=== PATIENT | male | born 1950 | race Caucasian/White ===

== ENCOUNTER 2021-08-06 13:35 | Outpatient (REF) | payer MEDICARE, BC, SELFPAY | END 2021-08-06 13:36 | disposition home or self-care (01) | LOC: HO.LAB 13:35 | PROVIDERS: Visit Provider Internal Medicine | DX: Z20.822 Contact with and (suspected) exposure to COVID-19 (principal) | CPT/HCPCS: C9803; U0003; U0005 ==

== ENCOUNTER 2024-12-25 11:16 | Outpatient (AMB) | payer MEDICARE, BC, SELFPAY ==
--- NOTE | 2024-12-25 11:18 | MHC.OFFVIS ---
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 His pain has been ongoing since 2012, attributable to lumbar facet arthritis and fibromyalgia. He underwent bilateral facet joint injections at L4-L5 and L5-S1 last year by Dr. Mcpherson, with only temporary alleviation of symptoms. Severe arthritis at these lumbar levels was confirmed by an MRI performed last year. His pain scale ranges between 4-8/10, exacerbated in the morning, and impacting daily function. Although he engaged in physical therapy and sought alternative therapies such as PRP injections at [facility], these have not significantly alleviated his discomfort. He expresses hesitancy towards RFA due to concerns with potential discomfort with nerve blocks and ablation procedure under local anesthesia. Patient reports his back pain symptoms have been worsening and he experiences significant difficulty with walking and fibromyalgia flare ups. He has completed physical therapy in the past with mild improvement and has also tried intermittently multiple sessions of chiropractic manipulation, massage therapy and acupuncture for the past 13 years with mixed results. Patient also undergone psychological counseling for chronic pain and depression until [address] Mcpherson since 2023 for back injections. He also has been taking Tylenol #3 as needed with minimal relief and uses marijuana on occasional basis for pain and sleep. 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 Patient avoids NSAIDs due to unknown allergy. - Onset: Pain began in 2012 - Quality/Character: Chronic, persists between 4-8/10 on pain scale; stabbing, sharp, pinching, burning, stinging, sore, hurting, aching, tiring, fearful, tight, squeezing - Location: Low back and buttocks - Radiation: Occasionally to left leg - Exacerbating factors: Arising in the morning, prolonged standing - Relieving factors: Better early evening, limited response to prior injections - Functional impact: Affects daily activities, impedes standing for prolonged periods - Affect: Pain impacting patient's daily functioning and potentially mood - Analgesia: Temporary relief previously from facet injections, current pain scale 8/10 - Adverse Effects: No side effects reported from previous treatments - Activities of Daily Living: Pain interferes with daily activities; goal to increase function and possibly engage in hiking - Aberrant Drug Related Behaviors: Reports history of remote addiction to Ativan and Klonopin [facility] Social History Alcohol intake: current Alcohol intake frequency: holidays/special occasions only Substance Use Type: Marijuana Substance Use Frequency: Occasionally Review of Systems Const Details: - Musculoskeletal: Reports chronic low back and buttock pain, occasional radiation to the left leg - Gastrointestinal: Denies recent surgery-related issues, experienced a week of diarrhea - Neurological: Denies bladder or bowel incontinence, saddle anesthesia or weakness All systems reviewed & are unremarkable except as noted in HPI and below Physical Exam Vital Signs: Last Vital Signs Pulse 72 12/25/24 11:21 BP 120/65 12/25/24 11:21 Pulse Ox 97 12/25/24 11:21 Oxygen Delivery Method Room Air 12/25/24 11:21 BMI result Body Mass Index 25.8 General: Appears afebrile. Alert and oriented. Mood and affect appropriate. Follows and participates in conversation appropriately. Respiratory effort is unlabored. No cough. Able to transition from sit to stand unassisted. Ambulates with bilaterally normal heel strike and toe off. Back/Spine/Pelvis Other: Limited lumbar ROM due to pain. Slightly antalgic gait, no limping. Demonstrates 5/5 strength of quadriceps bilaterally as well as flexion/dorsiflexion of bilateral feet against resistance. 2+ pedal pulses bilaterally. Straight leg rise with dorsiflexion negative bilaterally. +1 patellar and achilles reflexes bilaterally. Facet loading test positive bilaterally. Anaid sign, Fili?s, Gaenslen, Pelvic compression and Stinchfield tests are positive bilaterally. No groin pain with I/E hip rotations. Valsalva maneuver negative. Multiple widespread TTPs 16/16 bilaterally, including upper and lower extremities. Results Reviewed Results Reviewed: No imaging reports are available for review. Per referral notes, MRI confirmed severe arthritis at L4-L5 and L5-S1 (from prior testing) Assessment & Plan Assessment & Plan (1) Lumbar spondylosis: Code(s): M47.816 - Spondylosis without myelopathy or radiculopathy, lumbar region Category: Medical (2) Chronic low back pain: Code(s): M54.50 - Low back pain, unspecified; G89.29 - Other chronic pain Category: Medical (3) Fibromyalgia: Code(s): M79.7 - Fibromyalgia Category: Medical (4) Sacroiliac joint pain: Code(s): M53.3 - Sacrococcygeal disorders, not elsewhere classified Category: Medical Plan To manage the patient's chronic low back and buttock pain due to significant lumbar facet arthritis, I plan to proceed with lumbar medial branch blocks afor potential RFA, should he respond positively. This provides a temporary diagnostic blockade with potential progression to RFA, which can alleviate pain for an extended period. The discussion included potential sedation strategies for patient comfort due to fibromyalgia and discomfort concerns. An understanding of the procedural protocols, including recovery expectations and insurance submission, was emphasized. I educated the patient on the possibility of alternative methods such as nerve stimulators, which were declined. Information was provided to patient on RFA and medial branch blocks procedures. Schedule Bilateral Diagnostic L3-L4 DR L5 MBB with local and fluoroscopy. Expectations, risks and benefits were reviewed. Patient is aware he will be contacted to schedule this procedure. All questions and concerns have been answered and patient agreed with the plan. Follow up after injections and sooner as needed. Patient was informed and verbally consented to the use of an ambient scribe for clinic note documentation during this visit. Patient Instructions: During the visit, I detailed the potential application of lumbar medial branch blocks as a precursor to RFA, including the associated risks and benefits. I ensured the patient understood both the diagnostic purpose and potential for long-term pain relief achieved through RFA, possibly lasting up to a year. Sedation options to optimize comfort during RFA were discussed, especially pertinent due to fibromyalgia considerations. The patient expressed a clear understanding and consent, while expressing concerns for any potential procedural pain, which if pursued, would be mitigated through light sedation protocols. Alternative non-invasive options, including a temporary peripheral nerve stimulator, were addressed, though not preferred due to his spouse's hypersensitivity with stimulation devices. Coding Level of Care Code New Pt Level 4 (40734) Diagnoses Lumbar spondylosis M47.816 Chronic low back pain M54.50; G89.29 Fibromyalgia M79.7 Sacroiliac joint pain M53.3
[2024-12-25 11:21] VITALS: BP 120/65; PULSE 72; O2SAT 97; BMI 25.8
== END 2024-12-25 11:42 | disposition home or self-care (01) ==
PROVIDERS: Referring Provider Physical Medicine & Rehabilitation; Visit Provider Nurse Practitioner Family
DX: M47.816 Spondylosis without myelopathy or radiculopathy, lumbar region (principal); M54.50 Low back pain, unspecified; G89.29 Other chronic pain; M79.7 Fibromyalgia; M53.3 Sacrococcygeal disorders, not elsewhere classified
CPT/HCPCS: 99204

== ENCOUNTER → 2024-12-25 11:16 | Outpatient (BNVA) | payer MEDICARE, BC, SELFPAY | PROVIDERS: PCP Physical Medicine & Rehabilitation; Referring Provider Physical Medicine & Rehabilitation; Visit Provider Nurse Practitioner Family | DX: M47.816 Spondylosis without myelopathy or radiculopathy, lumbar region (principal); G89.29 Other chronic pain; M79.7 Fibromyalgia; M53.3 Sacrococcygeal disorders, not elsewhere classified | CPT/HCPCS: 99202 ==

== ENCOUNTER 2025-02-20 06:15 | Outpatient (REF) | payer MEDICARE, BC, SELFPAY ==
--- NOTE | ~2025-02-20 | FL_ITS ---
EXAMINATION: FL GUIDANCE ONLY HISTORY: M47.816 - Spondylosis without myelopathy or radiculopathy, lumbar region COMPARISON: None available. TECHNIQUE: Fluoroscopy time: 0.5 minutes. Cumulative Dose: 6.12 mGy. DAP: 0.106 mGym2 Images: 12. FINDINGS: Multiple fluoroscopic spot films of the lumbar spine in the AP projection demonstrate needles and contrast material in the regions of the bilateral L3-4, L4-5, and L5-S1 facet joints. FL/FL guidance in treatment room IMPRESSION: Fluoroscopy during procedure. Please see procedure report for additional information. Electronically signed by: Pradip Valenzuela MD 02/20/2025 12:00 PM EDT
== END 2025-02-20 06:16 | disposition home or self-care (01) ==
LOC: CF 06:15
PROVIDERS: Visit Provider Anesthesiology
DX: M47.816 Spondylosis without myelopathy or radiculopathy, lumbar region (principal)
CPT/HCPCS: 64493; 64494; J2003; J2795; Q9967

== ENCOUNTER 2025-02-20 11:16 | Outpatient (AMB) | payer MEDICARE, BC, SELFPAY ==
--- NOTE | 2025-02-20 11:17 | A.OFFVIS_ITS ---
Vital Signs 02/20/25 11:21 Height 5 ft 8.5 in Weight 172 lb BMI 25.8 BP 108/62 Blood Pressure Location Lt brachial Position Sitting Respiration 16 Pulse 78 Pulse Source Pulse Oximeter Pulse Oximetry (%) 97 Oxygen Delivery Method Room Air Intake Visit Reasons: BILATERAL DIAGNOSTIC L3, L4, DRL5 MBB/ATIVAN Allergies NSAIDS (Non-Steroidal Anti-Inflamma Allergy (Unknown, Verified 12/25/24 11:25) Unknown fragrance Allergy (Unknown, Uncoded 12/25/24 11:25) Unknown [facility], [facility] Social History Alcohol intake: current Alcohol intake frequency: holidays/special occasions only Substance Use Type: Marijuana Physical Exam Vital Signs: Last Vital Signs Pulse 78 02/20/25 11:21 Resp 16 02/20/25 11:21 BP 108/62 02/20/25 11:21 Pulse Ox 97 02/20/25 11:21 Oxygen Delivery Method Room Air 02/20/25 11:21 BMI result Body Mass Index 25.8 Assessment & Plan Assessment & Plan (1) Lumbar spondylosis: Code(s): M47.816 - Spondylosis without myelopathy or radiculopathy, lumbar region Category: Medical (2) Spondylosis of lumbar region without myelopathy or radiculopathy: Code(s): M47.816 - Spondylosis without myelopathy or radiculopathy, lumbar region Category: Medical Plan Diagnostic medial branch block L3,L4 dorsal ramus L5 bilateral.? ? ?Informed consent was explained to the patient. All questions were explained and? answered.? The patient was taken inside the operating room where she was positioned prone on the operating table. Time-out was performed delineating correct site, side, the nature of the procedure, patient's allergy, . All operating room staff was participating in OR time-out procedure. ? ? The lower back was prepped with ChloraPrep and draped with sterile towels.? C- arm was brought over the operating field and sq picture of L4-, L5 vertebra and S1 AREA were delineated on the screen.? Point of interest were delineated as confluence of superior articular process of L4 and L5 vertebra bilaterally with corresponding transverse processes as well as confluence of the sacral alae bilaterally with superior articular process of S1.? The projection of the point of interest to the skin were injected with the small amount of local anesthetic lidocaine 2% mixed with ropivacaine 0.5% 1-1 approcimately 1 cc.? After that 22 gauge 5 inch spinal needle was driven sequentially to the points of interest in tunnel vision fashion. After needles gently contacted the bone at the point of interests the needle was injected with small amount of the contrast.? The injection of the contrast did not demonstrate any intravascular or intrathecal spread of the contrast.? After that injection of the? ropivacaine 0.5%-1cc was performed at each needle location. ?after that the needles were removed and Bandaids were applied. Orders: Orders FL guidance in treatment room Today M47.816 - Spondylosis without myelopathy or radiculopathy, lumbar region Medications: New lorazepam (Ativan) Take 30 minutes prior to arrival to procedure 1 mg PO ONCE 1 tab 0RF anxiety Coding Level of Care Code Procedure Only Diagnoses Lumbar spondylosis M47.816 Spondylosis of lumbar region without myelopathy or radiculopathy M47.816
[2025-02-20 11:21] VITALS: BP 108/62; PULSE 78; RESP 16; O2SAT 97; BMI 25.8
== END 2025-02-20 11:53 | disposition home or self-care (01) ==
LOC: HO.PMCPRC 11:16
PROVIDERS: Visit Provider Anesthesiology
DX: M47.816 Spondylosis without myelopathy or radiculopathy, lumbar region (principal)
CPT/HCPCS: 64493; 64494

== ENCOUNTER 2025-02-26 10:31 | Outpatient (AMB) | payer MEDICARE, BC, SELFPAY ==
--- NOTE | 2025-02-26 10:35 | A.OFFVIS_ITS ---
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 He has severe arthritis in the lower back and neuroforaminal stenosis, moderate to severe on the left and moderate on the right, with a hypertrophied ligaments and bulging discs per previous lumbar spine MRI in 2022. Bilateral diagnostic injections at L3-L4 and L4-L5 initially reduced his pain to 2.5/10 for 6 hours, but the relief was not sustained. He has not undergone back surgery, as advised by a surgeon, unless the pain radiates to the legs, which it currently does not. The patient recently received PRP injections in the lower back at [place], which has increased his lower back pain with some concerns for his for sharp and nerve like pain, though since injections his pain has not been back to baseline levels. Patient continues to report persistent low back pain with radiation to his buttocks with prolonged walking and bending activities. He is considering a new MRI to evaluate his spinal condition. Past Procedures: 02/20/25: Bilateral Diagnostic L3-L4 DR L5 MBB-75% pain relief for 6 hours PRIOR 12/25/24: The patient is a 74-year-old male with history of arthritis, chronic fatigue, glaucoma, diabetes, borderline anemia, anxiety and depression, presenting with chronic low back and buttocks pain. His pain has been ongoing since 2012, attributable to lumbar facet arthritis and fibromyalgia. He underwent bilateral facet joint injections at L4-L5 and L5-S1 last year by Dr. Mcpherson, with only temporary alleviation of symptoms. Severe arthritis at these lumbar levels was confirmed by an MRI performed last year. His pain scale ranges between 4-8/10, exacerbated in the morning, and impacting daily function. Although he engaged in physical therapy and sought alternative therapies such as PRP injections at [facility], these have not significantly alleviated his discomfort. He expresses hesitancy towards RFA due to concerns with potential discomfort with nerve blocks and ablation procedure under local anesthesia. Patient reports his back pain symptoms have been worsening and he experiences significant difficulty with walking and fibromyalgia flare ups. He has completed physical therapy in the past with mild improvement and has also tried intermittently multiple sessions of chiropractic manipulation, massage therapy and acupuncture for the past 13 years with mixed results. Patient also undergone psychological counseling for chronic pain and depression until [address] Mcpherson since 2023 for back injections. He also has been taking Tylenol #3 as needed with minimal relief and uses marijuana on occasional basis for pain and sleep. 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 Patient avoids NSAIDs due to unknown allergy. - Onset: Pain began in 2012 - Quality/Character: Chronic, persists between 4-8/10 on pain scale; stabbing, sharp, pinching, burning, stinging, sore, hurting, aching, tiring, fearful, tight, squeezing - Location: Low back and buttocks - Radiation: Occasionally to left leg - Exacerbating factors: Arising in the morning, prolonged standing - Relieving factors: Better early evening, limited response to prior injections - Functional impact: Affects daily activities, impedes standing for prolonged periods - Affect: Pain impacting patient's daily functioning and potentially mood - Analgesia: Temporary relief previously from facet injections, current pain scale 8/10 - Adverse Effects: No side effects reported from previous treatments - Activities of Daily Living: Pain interferes with daily activities; goal to increase function and possibly engage in hiking - Aberrant Drug Related Behaviors: Reports history of remote addiction to Ativan and Klonopin [facility] Medical History (Updated 02/27/25 @ 09:34 by EFFIE Vela) Diabetes Borderline anemia Glaucoma Arthritis Fibromyalgia Chronic low back pain Neuroforaminal stenosis of lumbosacral spine Lumbar degenerative disc disease Chronic fatigue Anxiety and depression Social History Alcohol intake: current Alcohol intake frequency: holidays/special occasions only Substance Use Type: Marijuana Review of Systems Const Details: - Musculoskeletal: Reports chronic low back pain with radiation to buttocks but not his legs - Neurological: Denies numbness or tingling in legs, reports leg heaviness with prolonged walking, denies bladder or bowel dysfunction or saddle anesthesia. All systems reviewed & are unremarkable except as noted in HPI and below Physical Exam Vital Signs: Last Vital Signs Pulse 78 02/26/25 10:52 BP 111/58 L 02/26/25 10:52 Pulse Ox 97 02/26/25 10:52 Oxygen Delivery Method Room Air 02/26/25 10:52 BMI result Body Mass Index 25.2 General: Appears afebrile. Alert and oriented. Mood and affect appropriate. Follows and participates in conversation appropriately. Respiratory effort is unlabored. No cough. Able to transition from sit to stand unassisted. Ambulates with antalgic gait, with mild limping. General: Yes no CVA tenderness Back/Spine/Pelvis Other: Limited lumbar ROM due to pain. Demonstrates 5/5 strength of quadriceps bilaterally as well as flexion/dorsiflexion of bilateral feet against resistance. 2+ pedal pulses bilaterally. Straight leg rise with dorsiflexion positive bilaterally. +1 patellar and achilles reflexes bilaterally. Facet loading test positive bilaterally. Fili?s, Gaenslen, Pelvic compression and Stinchfield tests are positive bilaterally. No groin pain with I/E hip rotations. Valsalva maneuver is negative. Back: no CVA tenderness Cervical Spine: cervical ROM normal and No Cervical spine tenderness Thoracic/Lumbar Spine: thoracic and lumbar spine normal to inspection, No Thoracic/lumbar spine scar(s), Lasegue's sign positive bilateral and diffuse, pain with thoraco-lumbar ROM, paraspinal muscle tenderness, thoraco-lumbar ROM limited, No thoracic spinal tenderness and lumbar spinal tenderness at L4 and at L5 Sacroiliac joints: bilaterally tender to palpation Extrem General: Yes capillary refill normal and Yes no clubbing, cyanosis or edema Results Reviewed Results Reviewed: [facility] 12/23/2022 [facility] 10/28/2020 Assessment & Plan Assessment & Plan (1) Lumbar spondylosis: Code(s): M47.816 - Spondylosis without myelopathy or radiculopathy, lumbar region Category: Medical (2) Chronic low back pain: Code(s): M54.50 - Low back pain, unspecified; G89.29 - Other chronic pain Category: Medical (3) Neuroforaminal stenosis of lumbosacral spine: Code(s): M48.07 - Spinal stenosis, lumbosacral region Category: Medical (4) Lumbar degenerative disc disease: Code(s): M51.369 - Other intervertebral disc degeneration, lumbar region without mention of lumbar back pain or lower extremity pain Category: Medical (5) Lumbosacral radiculopathy: Code(s): M54.17 - Radiculopathy, lumbosacral region Category: Medical Plan The plan involves obtaining a new MRI to evaluate the patient's spinal condition, to assess for neural integrity and compression and follow up on previous MRI findings. Further interventions, including radiofrequency ablation for axial low back pain, will be considered post-MRI and after allowing time for the effects of recent PRP injections to stabilize. The patient is advised to monitor pain levels and report any significant changes. Patient is aware if he develops any red flag symptoms to seek emergency care. Patient denies any cauda equina syndrome symptoms at this time. A follow-up appointment will be scheduled after the MRI to review the results and modify the treatment plan as needed. Patient was informed and verbally consented to the use of an ambient scribe for clinic note documentation during this visit. Orders: Orders 2 MR lumbar spine wo con 02/26/25 G89.29 - Other chronic pain, M47.816 - Spondylosis without myelopathy or radiculopathy, lumbar region, M48.07 - Spinal stenosis, lumbosacral region, M51.369 - Other intervertebral disc degeneration, lumbar region without mention of lumbar back pain or lower extremity pain, M54.50 - Low back pain, unspecified Coding Level of Care Code Est Pt Level 4 (40425) Complex EM visit Add On G2211 Diagnoses Lumbar spondylosis M47.816 Chronic low back pain M54.50; G89.29 Neuroforaminal stenosis of lumbosacral spine M48.07 Lumbar degenerative disc disease M51.369 Lumbosacral radiculopathy M54.17
[2025-02-26 10:52] VITALS: BP 111/58; PULSE 78; O2SAT 97; BMI 25.2
== END 2025-02-26 11:08 | disposition home or self-care (01) ==
LOC: HO.PMC 10:32
PROVIDERS: Visit Provider Nurse Practitioner Family
DX: M47.816 Spondylosis without myelopathy or radiculopathy, lumbar region (principal); M54.50 Low back pain, unspecified; G89.29 Other chronic pain; M48.07 Spinal stenosis, lumbosacral region; M51.369 Other intervertebral disc degeneration, lumbar region without mention of lumbar back pain or lower extremity pain; M54.17 Radiculopathy, lumbosacral region
CPT/HCPCS: 99214; G2211

== ENCOUNTER → 2025-02-26 10:31 | Outpatient (BNVA) | payer MEDICARE, BC, SELFPAY | PROVIDERS: Visit Provider Nurse Practitioner Family | DX: M47.816 Spondylosis without myelopathy or radiculopathy, lumbar region (principal); M54.59 Other low back pain; M48.07 Spinal stenosis, lumbosacral region; M51.369 Other intervertebral disc degeneration, lumbar region without mention of lumbar back pain or lower extremity pain; M54.17 Radiculopathy, lumbosacral region; G89.29 Other chronic pain | CPT/HCPCS: 99212 ==

== ENCOUNTER 2025-05-21 10:50 | Outpatient (AMB) | payer MEDICARE, BC, SELFPAY ==
--- NOTE | 2025-05-21 10:54 | A.OFFVIS_ITS ---
Vital Signs 3 05/21/25 10:57 Height 5 ft 8.5 in Weight 170 lb BMI 25.5 BP 132/67 Blood Pressure Location Rt brachial Position Sitting Pulse 71 Pulse Source Pulse Oximeter Pulse Oximetry (%) 97 Oxygen Delivery Method Room Air Intake Visit Reasons: MRI FOLLOW UP Intake Note: Pain today 8.510 Oem Sales Manager Required: No Accompanied by: Self / Same As Patient Allergies NSAIDS (Non-Steroidal Anti-Inflamma Allergy (Unknown, Verified 02/26/25 10:53) Unknown fragrance Allergy (Unknown, Uncoded 12/25/24 11:25) Unknown HPI Comments Details: The patient is a 75-year-old male presenting with chronic back pain and discuss recent lumbar spine MRI results. The back pain has been persistent and worsened following a fall down the stairs last week, which occurred during the night while returning from the bathroom. The pain is localized to the back and buttocks and does not radiate to the legs, although there is occasional tingling on the side of the leg. Bending down exacerbates the pain, and there is no associated numbness or weakness in the legs. The patient also reports neck pain and abrasions on the scalp, knee, and arm resulting from the fall. A CT scan at the emergency room showed no significant brain injury, although there was some swelling at the site of impact on the scalp. The patient reports he did not require stitches or glue for the abrasions. The MRI findings indicate arthritis at L4-L5 and L5-S1 with mild to moderate narrowing of the spinal canal, particularly affecting the left side. The patient has a history of multiple injections, including PRP, and therapeutic and diagnostic injections provided temporary relief through another pain clinic. More recently, patient underwent diagnostic lumbar medial branch blocks that provided him 75% pain relief for about 6 hours with improved functioning, mobility and sleep. He is interested to proceed with lumbar RFA as next steps. Additionally, a 1.6 cm mass was noted in the left abdomen, which may correlate with previous findings of pelvic calcifications and kidney cysts. The patient has a history of pancreatic surgery due to an IPMN, and previous imaging showed bilateral pelvic calcifications. Past Procedures: 02/20/25: Bilateral Diagnostic L3-L4 DR L5 MBB-75% pain relief for 6 hours PRIOR 12/25/24: The patient is a 74-year-old male with history of arthritis, chronic fatigue, glaucoma, diabetes, borderline anemia, anxiety and depression, presenting with chronic low back and buttocks pain. His pain has been ongoing since 2012, attributable to lumbar facet arthritis and fibromyalgia. He underwent bilateral facet joint injections at L4-L5 and L5-S1 last year by Dr. Mcpherson, with only temporary alleviation of symptoms. Severe arthritis at these lumbar levels was confirmed by an MRI performed last year. His pain scale ranges between 4-8/10, exacerbated in the morning, and impacting daily function. Although he engaged in physical therapy and sought alternative therapies such as PRP injections at [facility], these have not significantly alleviated his discomfort. He expresses hesitancy towards RFA due to concerns with potential discomfort with nerve blocks and ablation procedure under local anesthesia. Patient reports his back pain symptoms have been worsening and he experiences significant difficulty with walking and fibromyalgia flare ups. He has completed physical therapy in the past with mild improvement and has also tried intermittently multiple sessions of chiropractic manipulation, massage therapy and acupuncture for the past 13 years with mixed results. Patient also undergone psychological counseling for chronic pain and depression until [address] Mcpherson since 2023 for back injections. He also has been taking Tylenol #3 as needed with minimal relief and uses marijuana on occasional basis for pain and sleep. 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 Patient avoids NSAIDs due to unknown allergy. - Onset: Pain began in 2012 - Quality/Character: Chronic, persists between 4-8/10 on pain scale; stabbing, sharp, pinching, burning, stinging, sore, hurting, aching, tiring, fearful, tight, squeezing - Location: Low back and buttocks - Radiation: Occasionally to left leg - Exacerbating factors: Arising in the morning, prolonged standing - Relieving factors: Better early evening, limited response to prior injections - Functional impact: Affects daily activities, impedes standing for prolonged periods - Affect: Pain impacting patient's daily functioning and potentially mood - Analgesia: Temporary relief previously from facet injections, current pain scale 8/10 - Adverse Effects: No side effects reported from previous treatments - Activities of Daily Living: Pain interferes with daily activities; goal to increase function and possibly engage in hiking - Aberrant Drug Related Behaviors: Reports history of remote addiction to Ativan and Klonopin [facility] Medical History Diabetes Borderline anemia Glaucoma Arthritis Fibromyalgia Chronic low back pain Neuroforaminal stenosis of lumbosacral spine Lumbar degenerative disc disease Chronic fatigue Anxiety and depression Social History Alcohol intake: current Alcohol intake frequency: holidays/special occasions only Substance Use Type: Marijuana Review of Systems Const Details: - Musculoskeletal: Reports chronic back pain, neck pain, and occasional tingling in the leg. Denies radiating pain to the legs. - Neurological: Denies numbness or weakness in the legs, bladder or bowel dysfunction or saddle anesthesia. - Integumentary: Reports healing abrasions on scalp, knee, and arm status post recent fall. - Gastrointestinal: Reports left abdominal pain for 50 years. All systems reviewed & are unremarkable except as noted in HPI and below Physical Exam Vital Signs: Last Vital Signs Pulse 71 05/21/25 10:57 BP 132/67 05/21/25 10:57 Pulse Ox 97 05/21/25 10:57 Oxygen Delivery Method Room Air 05/21/25 10:57 BMI result Body Mass Index 25.5 General: Appears afebrile. Alert and oriented. Mood and affect appropriate. Follows and participates in conversation appropriately. Respiratory effort is unlabored. No cough. Able to transition from sit to stand unassisted. Ambulates with antalgic gait, with mild limping. General: Yes no CVA tenderness Back/Spine/Pelvis Other: Limited lumbar ROM due to pain. Antalgic gait with mild limping. Demonstrates 5/5 strength of quadriceps bilaterally as well as flexion/dorsiflexion of bilateral feet against resistance. 2+ pedal pulses bilaterally. Straight leg rise with dorsiflexion positive bilaterally in L5 distribution, left>right. +1 patellar and achilles reflexes bilaterally. Facet loading test positive bilaterally. Fili?s, Pelvic compression and Stinchfield tests are positive bilaterally. No groin pain with I/E hip rotations. Valsalva maneuver is negative. Back: no CVA tenderness Cervical Spine: cervical ROM normal and No Cervical spine tenderness Thoracic/Lumbar Spine: thoracic and lumbar spine normal to inspection, No Thoracic/lumbar spine scar(s), Lasegue's sign positive bilateral and localized, pain with thoraco-lumbar ROM, paraspinal muscle tenderness, thoraco-lumbar ROM limited, No thoracic spinal tenderness and lumbar spinal tenderness at L4 and at L5 Sacroiliac joints: bilaterally tender to palpation Extrem General: Yes capillary refill normal, Yes no clubbing, cyanosis or edema and Yes no calf tenderness Results Reviewed Results Reviewed: [facility] 12/23/2022 [facility] 10/28/2020 Assessment & Plan Assessment & Plan (1) Lumbar spondylosis: Code(s): M47.816 - Spondylosis without myelopathy or radiculopathy, lumbar region Category: Medical (2) Chronic low back pain: Code(s): M54.50 - Low back pain, unspecified; G89.29 - Other chronic pain Category: Medical (3) Sacroiliac joint pain: Code(s): M53.3 - Sacrococcygeal disorders, not elsewhere classified Category: Medical (4) Lumbar degenerative disc disease: Code(s): M51.369 - Other intervertebral disc degeneration, lumbar region without mention of lumbar back pain or lower extremity pain Category: Medical (5) Lumbosacral radiculopathy: Code(s): M54.17 - Radiculopathy, lumbosacral region Category: Medical (6) Fibromyalgia: Code(s): M79.7 - Fibromyalgia Category: Medical Plan The plan includes proceeding with lumbar medial branch radiofrequency ablation (RFA) to manage the chronic back pain, as the patient has previously experienced significant relief from diagnostic injections. Schedule Bilateral L3-L4 DR L5 Medial Branch RFA with sedation and fluoroscopy. Expectations, risks and benefits were reviewed. Patient is aware he will be contacted to schedule this procedure. The patient is advised to follow up with a installment agent and PCP regarding the 1.6 cm mass in the left abdomen, as it may correlate with previous findings of pelvic calcifications and kidney cysts. Additionally, the patient should continue with prescribed exercises, taking care to avoid activities that exacerbate pain. Patient reports taking Tylenol #3 for significant pain with partial effect. All questions and concerns have been answered and patient agreed with the treatment plan. Follow up after lumbar RFA and sooner as needed. Patient was informed and verbally consented to the use of an ambient scribe for clinic note documentation during this visit. Coding Level of Care Code Est Pt Level 4 (66607) Complex EM visit Add On G2211 Diagnoses Lumbar spondylosis M47.816 Chronic low back pain M54.50; G89.29 Sacroiliac joint pain M53.3 Lumbar degenerative disc disease M51.369 Lumbosacral radiculopathy M54.17 Fibromyalgia M79.7
[2025-05-21 10:57] VITALS: BP 132/67; PULSE 71; O2SAT 97; BMI 25.5
--- OUTSIDE RECORDS SUMMARY | 2025-05-21 13:05 | XMS_ITS | Encounter Summary ---
Author Organization [facility] Address [address] [place] [address] [place] [address] Phone Care Team Providers Care Rn Nicu Name Role Phone Liu Song MD Primary Care Provider [phone] Encounter Details Date Type Department Care Team (Late Contact Info) Description 05/17/2023 Procedure Pass [facility] Admitting Dept Virtual Department [address] [place] [id number] Social History Tobacco Use Types Packs/Day Years Used Date Smoking Tobacco: Never Smokeless Tobacco: Never Alcohol Use Standard Drinks/Week Comments Yes 0 (1 standard drink = 0.6 oz pur e alcohol) Occasional wine Education Answer Date Recorded Are you interested in more education? Not on gracia e 12/10/2022 Are you concerned about learning? Not on file 12/10/2022 No 12/10/2022 No 12/10/2022 Digital Access Answer Date Recorded No 01/07/2023 No 01/07/2023 Reliable internet access at home? Not on file 01/07/2023 Device with a working camera? Not on file Sex and Gender Information Value Date Recorded Sex Assigned at Male 12/19/2019 11:56 AM EDT Legal Sex Male 7:42 PM EST Gender Identity Male 12/19/2019 11:56 AM EDT Sexual Orientation Straight 10/26/2020 10 :46 AM EST documented as of this encounter Plan of Treatment Upcoming Encounters Date Type Department Care Team (Late Contact Info) Description 11/05/2025 9:00 AM EDT Office Visit [facility] Medicine [address] [place] [address] Sharon Stearns MD [address] [facility], [address] [place] [address] [email or web address] documented as of this encounter Visit Diagnoses Not on filedocumented in this encounter Additional Health Concerns Infection Onset Date Last Indicated Resolved Time CoV-Risk 12/13/2023 12/15/2023 12/26/2023 1:21 AM EDT CoV-Risk 01/17/2024 01/17/2024 01/28/2024 1:22 AM EDT documented as of this encounter Care Teams Rn Nicu Relationship Specialty Start Date End Date Liu Song MD [address] [place] [id number] [email or web address] PCP - General Family Medicine 07/18/18 documented as of this encounter Additional Source Comments The information contained in this document represents components of the legal health record. It is not the complete legal health record.[facility]
--- OUTSIDE RECORDS SUMMARY | 2025-05-21 13:05 | XMS_ITS | Encounter Summary ---
Author Organization [facility] Address [address] [place] [address] [address] [place] [address] Phone Care Team Providers Care Flour Blender Helper Name Role Phone David Palacio MD Unavailable [phone] Tony Hauser MD Primary Care Provider [phone] Liu Song MD Primary Care Provider [phone] Encounter Details Date Type Department Care Team (Late st Contact Info) Description 08/27/[address] [facility] MR Imaging, [place] [address] [place] [address] Social History Tobacco Use Types Packs/Day Years Used Date Smoking Tobacco: Never Sex and Gender Information Value Date Recorded Sex Assigned at Male 12/19/2019 11:56 AM EDT Legal Sex Male 7:42 PM EST Gender Identity Male 12/19/2019 11:56 AM EDT Sexual Orientation Straight 10/26/2020 10 :46 AM EST documented as of this encounter Plan of Treatment Upcoming Encounters Date Type Department Care Team (Late st Contact Info) Description 11/05/2025 9:00 AM EDT Office Visit [facility] Medicine [address] [place] [address] Sharon Stearns MD [address] [facility], [address] [place] [address] [email or web address] documented as of this encounter Visit Diagnoses Not on filedocumented in this encounter Additional Health Concerns Infection Onset Date Last Indicated Resolved Time CoV-Risk 01/10/2020 01/10/2020 01/24/2020 1:23 AM EDT CoV-Risk 07/25/2020 07/25/2020 08/08/2020 1:25 AM EST CoV-Exposed Comment:Recent close contact documented in the COVID-19 Amb Triage Form 01/30/2022 02/04/2022 02/10/2022 1:24 AM E DT CoV-Risk Comment:Per Ambulatory Triage Form 03/05/2022 03/10/202203/21 1:21 AM EDT CoV-Exposed Comment:Recent close contact documented in the COVID-19 Amb Triage Form 05/09/2022 05/12/2022 05/20/2022 1:22 AM E DT CoV-Risk Comment:Per Ambulatory Triage Form 05/27/2022 05/28/202206/08 1:22 AM EDT CoV-Risk 07/28/2022 07/28/2022 07/29/2022 11:5 3 AM EST CoV-Exposed Comment:Positive COVID-19 07/28/2022 07/28/2022 07/29/2022 11: 53 AM EST COVID-19 07/28/2022 07/28/2022 08/18/2022 1:22 AM EST CoV-Risk 12/13/2023 12/15/2023 12/26/2023 1:21 AM EDT CoV-Risk 01/17/2024 01/17/2024 01/28/2024 1:22 AM EDT documented as of this encounter Care Teams Flour Blender Helper Relationship Specialty Start Date End Date Tony Hauser MD [address] [place] [address] [place] [address] PCP - General 08/27/16 07/17/18 Liu Song MD [address] [place] [email or web address] PCP - General Family Medicine 07/18/18 David Palacio MD [address] [place] [address] [place] [phone] [email or web address] Historical LMR Provider 12/29/14 08/23/21 documented as of this encounter Additional Source Comments The information contained in this document represents components of the legal health record. It is not the complete legal health record.[facility]
--- OUTSIDE RECORDS SUMMARY | 2025-05-21 13:05 | XMS_ITS | Encounter Summary ---
Author Organization [facility] Address [facility] [employer] [facility] [address] [place] [address] Phone Care Team Providers Care College Athlete Name Role Phone Liu Song MD Primary Care Provider [phone] Encounter Details Date Type Department Care Team (Late st Contact Info) Description 03/05/2023 Procedure Pass [facility], [address] [address] Social History Tobacco Use Types Packs/Day Years [...] Description 11/05/2025 9:00 AM EDT Office Visit [facility] Medicine [address] [place] [address] Sharon Stearns MD [address] [facility], [address] [place] [address] [email or web address] documented as of this encounter Visit Diagnoses Not on filedocumented in this encounter Additional Health Concerns Infection Onset Date Last Indicated Resolved Time CoV-Risk 12/13/2023 12/15/2023 12/26/2023 1:21 AM EDT CoV-Risk 01/17/2024 01/17/2024 01/28/2024 1:22 AM EDT documented as of this encounter Care Teams College Athlete Relationship Specialty Start Date End Date Liu Song MD [address] [place] [address] [email or web address] PCP - General Family Medicine 07/18/18 documented as of this encounter Additional Source Comments The information contained in this document represents components of the legal health record. It is not the complete legal health record.[facility]
--- OUTSIDE RECORDS SUMMARY | 2025-05-21 13:05 | XMS_ITS | Encounter Summary ---
Author Organization [facility] Address [address] [place] [address] [place] [address] Phone Care Team Providers Care Communications Writer Name Role Phone Liu Song MD Primary Care Provider [phone] Reason for Referral * MRI/CAT Scan - Closed Specialty Diagnoses / Procedures Referred By Contac t Referred To Contact Radiology Diagnoses IPMN (intraductal papillary mucinous neoplasm) Procedures MRI Cholangiopancreatography (MRCP) Markus Combs MD Phone: tel: fax: [email or web address] Referral ID Status Reason Start Date Expiration Date Visits Re quested Visits Authorized [id number] Closed 03/05/2023 1 1 Encounter Details Date Type Department Care Team (Latest Contact Info) Description 03/05/2023 Transcribe Orders Virtual Department [address] [place] [address] Markus Combs MD [address] [place] [phone] [email or web address] IPMN (intraductal papillary mucinous neoplasm) (Primary Dx) Social History Tobacco Use Types Packs/Day Years [...] Description 11/05/2025 9:00 AM EDT Office Visit [address] [address] Sharon Stearns MD [address] [place] [address] [address] [place] [address] [email or web address] documented as of this encounter Results * MRI CHOLANGIOPANCREATOGRAPHY (MRCP) WITH AND WITHOUT CONTRAST (05/16/2023 11:06 AM EDT) Anatomical Region Laterality Modality Pancreas, Biliary Magnetic Reson ance 05/16/2023 9:23 PM EDT Impressions 05/17/2023 5:40 PM EDT Unchanged subcentimeter pancreatic branch-duct IPMNs in the remnant, without suspicious features. No main pancreatic duct dilation. Narrative 05/17/2023 5:40 PM EDT MRI CHOLANGIOPANCREATOGRAPHY (MRCP) WITH AND WITHOUT CONTRAST TECHNIQUE: Multiplanar MR imaging of the abdomen was performed using T1, T2, fat saturated, and diffusion weighted techniques. 2D and 3D MRCP sequences were performed. Dynamic multiphase imaging was also performed after administration of an intravenous gadolinium contrast agent. COMPARISON: MRI CHOLANGIOPANCREATOGRAPHY (MRCP) WITH AND WITHOUT CONTRAST FINDINGS: Lower Chest: Within normal limits. Liver: No global signal abnormality or suspicious focal lesion. Scattered cysts. Biliary: No duct dilation or filling defect. Prior cholecystectomy. Spleen: No splenomegaly or suspicious focal lesion. Pancreas: Prior Whipple procedure. Mild duct irregularity but no abnormal main duct dilation in the remnant. Scattered cysts measuring up to 6 mm, not significantly changed. No solid mass. No associated enhancement. Adrenal Glands: No nodule. Kidneys/Ureters: No solid renal mass or hydronephrosis. Bilateral simple appearing cyst cysts. Peritoneum/Retroperitoneum: No abdominal free fluid or mass. 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 Lymph Nodes: No abnormally enlarged lymph nodes. Vessels: No abdominal aortic aneurysm. Bones/Soft Tissues: No suspicious osseous lesion. Degenerative changes. Anterior abdominal wall postsurgical changes. Procedure Note Timur Wood MD - 05/17/2023 MRI CHOLANGIOPANCREATOGRAPHY (MRCP) WITH AND WITHOUT CONTRAST TECHNIQUE: Multiplanar MR imaging of the abdomen was performed using T1,T2, fat saturated, and diffusion weighted techniques. 2D and 3D MRCPsequences were performed. Dynamic multiphase imaging was also performedafter administration of an intravenous gadolinium contrast agent. COMPARISON: MRI CHOLANGIOPANCREATOGRAPHY (MRCP) WITH AND WITHOUT [id number] FINDINGS: Lower Chest: Within normal limits. Liver: No global signal abnormality or suspicious focal lesion. Scatteredcysts. Biliary: No duct dilation or filling defect. Prior cholecystectomy. Spleen: No splenomegaly or suspicious focal lesion. Pancreas: Prior Whipple procedure. Mild duct irregularity but no abnormalmain duct dilation in the remnant. Scattered cysts measuring up to 6 mm,not significantly changed. No solid mass. No associated enhancement. Adrenal Glands: No nodule. Kidneys/Ureters: No solid renal mass or hydronephrosis. Bilateral simpleappearing cyst cysts. Peritoneum/Retroperitoneum: No abdominal free fluid or mass. Mild centralmesenteric haziness with associated nonenlarged but prominent in numbermesenteric lymph nodes, nonspecific but is unchanged and most likelysequelae of mesenteric panniculitis. Lymph Nodes: No abnormally enlarged lymph nodes. Vessels: No abdominal aortic aneurysm. Bones/Soft Tissues: No suspicious osseous lesion. Degenerative changes.Anterior abdominal wall postsurgical changes. IMPRESSION: Unchanged subcentimeter pancreatic branch-duct IPMNs in the remnant,without suspicious features. No main pancreatic duct dilation. us Markus Combs MD IMG MR ABDOMEN Final Result documented in this encounter Visit Diagnoses Diagnosis IPMN (intraductal papillary mucinous neoplasm)- Primary Neoplasm of unspecified nature of digestive system IPMN (intraductal papillary mucinous neoplasm) Neoplasm of unspecified nature of digestive system documented in this encounter Additional Health Concerns Infection Onset Date Last Indicated Resolved Time CoV-Risk 12/13/2023 12/15/2023 12/26/2023 1:21 AM EDT CoV-Risk 01/17/2024 01/17/2024 01/28/2024 1:22 AM EDT documented as of this encounter Care Teams Communications Writer Relationship Specialty Start Date End Date Liu Song MD [address] [place] [phone] [email or web address] PCP - General Family Medicine 07/18/18 documented as of this encounter Additional Source Comments The information contained in this document represents components of the legal health record. It is not the complete legal health record.[facility]
--- OUTSIDE RECORDS SUMMARY | 2025-05-21 13:05 | XMS_ITS | Encounter Summary ---
Author Organization [facility] Address [address] [place] [address] Phone Care Team Providers Care Expressive Art Therapist Name Role Phone Liu Song MD Primary Care Provider [phone] Encounter Details Date Type Department Care Team (Latest Contact Info) Description 05/21/2023 Transcribe Orders [facility] Laboratory [address] [place] [address] Tony Hauser MD [address] [facility] [address] [place] [address] Anemia, unspecified type (Primary Dx) Social History Tobacco Use Types [...] Description 11/05/2025 9:00 AM EDT Office Visit [facility] Medicine [address] [place] [address] Sharon Stearns MD [address] [facility], [address] [place] [address] [email or web address] documented as of this encounter Results * Erythropoietin level (05/21/2023 1:33 PM EDT) ERYTHROPOIETIN 12.9 2.6 - 18.5 mIU/mL [facility] Blood 05/21/2023 1:33 PM EDT 05/21/2023 1:36 PM EDT us Tony Hauser MD LAB BLOOD ORDERABLES Golry l Result [facility] [address] [place] [address] documented in this encounter Visit Diagnoses Diagnosis Anemia, unspecified type- Primary documented in this encounter Additional Health Concerns Infection Onset Date Last Indicated Resolved Time CoV-Risk 12/13/2023 12/15/2023 12/26/2023 1:21 AM EDT CoV-Risk 01/17/2024 01/17/2024 01/28/2024 1:22 AM EDT documented as of this encounter Care Teams Expressive Art Therapist Relationship Specialty Start Date End Date Liu Song MD [address] [place] [phone] [email or web address] PCP - General Family Medicine 07/18/18 documented as of this encounter Additional Source Comments The information contained in this document represents components of the legal health record. It is not the complete legal health record.[facility]
--- OUTSIDE RECORDS SUMMARY | 2025-05-21 13:05 | XMS_ITS | Encounter Summary ---
Author Organization [facility] Address [facility] [employer] [facility] [address] [place] [address] Phone Care Team Providers Care Chair Lift Operator Name Role Phone David Palacio MD Unavailable [phone] Tony Hauser MD Primary Care Provider [phone] Liu Song MD Primary Care Provider [phone] Encounter Details Date Type Department Care Team (Late st Contact Info) Description 06/24/2017 Procedure Pass [facility]oscopy Admitting Dept Virtual Department [address] [place] [id number] Social History Tobacco Use Types Packs/Day Years Used Date Smoking Tobacco: Never Alcohol Use Standard Drinks/Week Comments No 0 (1 standard drink = 0.6 oz pur e alcohol) Occasional wine Sex and Gender Information Value Date Recorded Sex Assigned at Male 12/19/2019 11:56 AM EDT Legal Sex Male 7:42 PM EST Gender Identity Male 12/19/2019 11:56 AM EDT Sexual Orientation Straight 10/26/2020 10 :46 AM EST documented as of this encounter Plan of Treatment Upcoming Encounters Date Type Department Care Team (Late Contact Info) Description 11/05/2025 9:00 AM EDT Office Visit [facility] Medicine [address] [place] [address] Sharon Stearns MD [address] [facility], [address] [place], [place] [id number] [email or web address] documented as of this encounter Visit [...] documented as of this encounter Care Teams Chair Lift Operator Relationship Specialty Start Date End Date Tony Hauser MD [address] [place] [address] [place] [address] PCP - General 08/27/16 07/17/18 Liu Song MD [address] [place] [phone] [email or web address] PCP - General Family Medicine 07/18/18 David Palacio MD [address] [place] [address] [place] [address] [email or web address] LMR Provider 12/29/14 08/23/21 documented as of this encounter Additional Source Comments The information contained in this document represents components of the legal health record. It is not the complete legal health record.[facility]
--- OUTSIDE RECORDS SUMMARY | 2025-05-21 13:05 | XMS_ITS | Clinical Summary ---
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 Active FLUoxetine (PROZAC) 20 MG tablet Take 60 mg by mouth daily. Active levothyroxine (SYNTHROID, LEVOTHROID) 175 MCG tablet Take 175 mcg by mouth every other day. Active dorzolamide-dell lol (COSOPT) 22.3-6.8 mg/mL ophthalmic solution Place 1 drop into each eye 2 (two) times a day. BID, occasionally TID in the right eye only. Active acetaminophen with codeine (TYLENOL-CODEINE #3 ORAL)Indications :PRN PRN Indications: PRN Active benzonatate (TESSALON) 200 MG capsule Take 1 capsule (200 mg total) by mouth nightly at bedtime as needed for cough. 2 po at hs prn cough 16 capsule 0 Active OMEPRAZOLE ORAL Take by mouth as needed. PRN Active levothyroxine (SYNTHROID, LEVOTHROID) 150 MCG tablet Take 150 mcg by mouth every other day. Active famotidine (PEPCID) 40 MG tablet Take 40 mg by mouth 2 (two) times a day. Active liothyronine sodium (CYTOMEL ORAL) Take by mouth 2 (two) times a day. Active metFORMIN (GLUCOPHAGE-XR) 500 MG 24 hr tablet 500 in the am, 1000 in the pm 2 Active OZEMPIC 0.25 mg or 0.5 mg(2 mg/1.5 mL) subcutaneous injection pen 2 Active traZODone (DESYREL) 100 MG tablet 150 mg. 2 Active OZEMPIC 0.25 mg or 0.5 mg (2 mg/3 mL) subcutaneous injection pen 4 Active sucralfate (CARAFATE) 1 gram tablet 4 Active albuterol 90 mcg/actuation inhaler Inhale 2 puffs into the lungs every 6 (six) hours as needed for shortness of breath/dyspnea (cough). 8 g 4 Active OZEMPIC 1 mg/dose (4 mg/3 mL) subcutaneous injection pen Inject 1 mg under the skin every 7 days. 4 Active Active Problems Problem Noted Date Diagnosed Date Tendinitis of hip 06/04/2021 Thoracic degenerative disc disease 01/09/2019 Assessment & Plan (01/09/2019 7:32 PM EDT): Try manual therapy if no success consider injections to thoracic spine to decrease pain radiating around torso. Explained that some discs do get better with time. Anxiety disorder 11/01/2018 Glaucoma 11/01/2018 Hypothyroid 11/01/2018 Insomnia 11/01/2018 Strain of lumbar paraspinal muscle, sequela 10/14 Assessment & Plan (01/23/2019 11:38 AM EDT): Exercises advanced to include active and dynamic stabilization. Including lateral movement on bridge and lumbar stabilization with limb movement. Assessment & Plan (11/01/2018 9:48 AM EDT): Elevate PT notes to determine why he is not getting better. 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 09/08/2016 Encounters Date Type Department Care Team Description 05/14/2025 5:06 PM EDT - 05/14/2025 6:33 PM EDT Emergency [facility] [address] [place] [id number] Discharge Disposition: Home or Self Care 05/14/2025 Procedure Pass [address] [address] 05/14/[address] [address] 05/14/[address] [address] 05/14/2025 Procedure Pass [address] [address] 05/10/2025 3:45 PM EDT - 05/10/2025 11:59 PM EDT Hospital Encounter [address] [address] Marie Yarbrough CNP Discharge Disposition: Home or Self Care 04/12/2025 Procedure Pass [address] [address] 04/12/2025 Transcribe Orders Virtual Department [address] [place] [id number] Marie Yarbrough CNP IPMN (intraductal papillary mucinous neoplasm) (Primary Dx); Biliary gastritis 04/09/2025 3:32 PM EDT - 04/09/2025 11:59 PM EDT Hospital Encounter [address] [address] Portia Mccall FNP Discharge Disposition: Home or Self Care 03/08/2025 Procedure Pass [address] [address] 03/08/2025 Transcribe Orders Virtual Department [address] [place] [address] Portia Mccall, ACID PAINTER Lumbosacral spinal stenosis (Primary Dx) from Last 3 Months Immunizations Immunization Administration Dates Next Due COVID-19 (Pre-06/07) Eduardo Vaccine, [id number], PF 10/24/2020 Influenza, Unspecified Formulation 09/15(Deferred: Patient Decision - , Ordered By: [id number]) Pneumococcal, Unspecified Formulation (Deferred: Other - , Ordered By: [id number]) Tdap 05/14/2025 Family History Medical History Relation Comments Diabetes Brother Diabetes Father Stroke Father Kidney failure Mother Relation Status Comments Brother Alive Father Mother Alive Social History Tobacco Use Types Packs/Day Years Used Date Smoking Tobacco: Never Smokeless Tobacco: Never Tobacco Cessation:Counseling Given: Not Answered Alcohol Use Standard Drinks/Week Comments Yes 0 (1 standard drink = 0.6 oz pur e alcohol) Occasional wine Education Answer Date Recorded Are you interested in more education? Not on gracia e 12/10/2022 Are you concerned about learning? Not on file 12/10/2022 No 12/10/2022 No 12/10/2022 Food Answer Date Recorded Within the past 6 months we worried whether our food would run out before we got money to buy more. Never True 05/14/2025 Within the past 6 months the food we bought just didn't last and we didn't have enough money to get more. Never True Residential Stability Answer Date Recor ded What is your housing situation today? I have ptaricia sing 05/14/2025 How many times have you move d in the past 12 months? Zero (I did not move) 05/14/2025 Paying for Meds Answer Date Recorded Do you have trouble paying for medicines? No 05/14/2025 Paying Utility Bills Answer Date Record ed Do you have trouble paying your heating or elect ricity bill? No 05/14/2025 Transportation Answer Date Recorded Has the lack of transportati on kept you from medical appointments or from getting medications? No 05/14/2025 Digital Access Answer Date Recorded No 05/14/2025 Yes 05/14/2025 Do you have reliable internet access at home? Ye s 05/14/2025 Do you have a device (e.g., phone, tablet, computer) with a working camera? Yes 05/14/2025 Intimate Partner Violence Answer Date R ecorded Are you denied basic needs s uch as food, clothing, or medical care? No 05/14/2025 In the past 12 months have y ou been in a relationship with a person who hurts, threatens, or tries to control you? No 05/14/2025 Are you denied basic needs s uch as food, clothing, or medical care? No 05/14/2025 In the past 12 months have y ou been in a relationship with a person who hurts, threatens, or tries to control you? No 05/14/2025 Sex and Gender Information Value Date Recorded Sex Assigned at Male 12/19/2019 11:56 AM EDT Legal Sex Male 7:42 PM EST Gender Identity Male 12/19/2019 11:56 AM EDT Sexual Orientation Straight 10/26/2020 10 :46 AM EST Last Filed Vital Signs Vital Sign Reading Time Taken Comments Blood Pressure 134/84 05/14/2025 6:21 PM EDT Pulse 74 05/14/2025 6:21 PM EDT Temperature 36.4 C (97.5 F) 05/14/2025 6:21 PM EDT Respiratory Rate 16 05/14/2025 6:21 PM EDT Oxygen Saturation 96% 05/14/2025 6:21 PM EDT Inhaled Oxygen Concentration - - Weight 77.1 kg (170 lb) 05/14/2025 2:43 PM EDT Height 172.7 cm (5' 8 ) 05/14/2025 2:43 PM EDT Body Mass Index 25.85 05/14/2025 2:43 PM EDT Plan of Treatment Upcoming Encounters Date Type Department Care Team (Late st Contact Info) Description 11/05/2025 9:00 AM EDT Office Visit [facility] [address] [place] [address] Sharon Stearns MD [address] [facility], [address] [place] [address] [email or web address] Due Date Last Done Comments LIPID PANEL 1949 TSH LEVEL 1949 DEPRESSION SCREENING 1961 HEPATITIS C SCREENING 1967 PNEUMOCOCCAL VACCINES (50+ years) (1 of 1 - PCV) 1999 ZOSTER VACCINES (1 of 2) 1999 CREATININE LEVEL 07/29/2022 07/29/2021, , 07/18/2018, Additional history exists RSV VACCINE (1 - 1-dose 75+ series) 02/12/2024 INFLUENZA VACCINE (#1) 2025 05/23/2021 COVID-19 VACCINE ( - 2024- season) 2025 01/13/2022, 06/09/2021, 10/24/2020 Adult Td,Tdap Booster 05/14/2035 05/14/2025 SMOKING STATUS SCREENING (Once After 26 Yrs) Completed 05/14/2025 HEPATITIS A VACCINES Aged Out No long er eligible based on patient's age to complete this topic HIB VACCINES Aged Out No longer eligi ble based on patient's age to complete this topic MENINGOCOCCAL VACCINES (ACWY) Aged Out No longer eligible based on patient's age to complete this topic MENINGOCOCCAL VACCINES (B) Aged Out N o longer eligible based on patient's age to complete this topic Medical Devices Not on file Procedures Procedure Name Priority Date/Time Associated Diagnosis Comments CT LUMBAR SPINE WITHOUT CONTRAST Routine 05/14/2025 3:[address] THORACIC SPINE WITHOUT CONTRAST Routine 05/14/2025 3:[address] CERVICAL SPINE WITHOUT CONTRAST Routine 05/14/2025 3:[address] HEAD WITHOUT CONTRAST Routine 025 3:45 PM EDT MRI CHOLANGIOPANCREATOGRAPHY (MRCP) WITH AND WITHOUT CONTRAST Routine 05/10/2025 6:03 PM EDT IPMN (intraductal papillary mucinous neoplasm) Biliary gastritis MRI LUMBAR SPINE (NEURO) WITHOUT CONTRAST Routine 04/09/2025 4:46 PM EDT Lumbosacral spinal stenosis COMPREHENSIVE METABOLIC PANEL Routine 11:08 AM EST Encounter for long-term (current) use of other medications from Last 3 Months or Most Recently Relevant to Health Maintenance Results * CT THORACIC SPINE WITHOUT CONTRAST (05/14/2025 3:45 PM EDT) Anatomical Region Laterality Modality T-spine Computed Tomogra phy 05/14/2025 4:35 PM EDT Impressions 05/14/2025 4:49 PM EDT 1. No acute fracture or traumatic malalignment in the thoracic or lumbar spine. Narrative 05/14/2025 4:[address] THORACIC SPINE WITHOUT CONTRAST, CT LUMBAR SPINE WITHOUT CONTRAST Referring clinician's provided indication for this examination in Epic: * Back trauma, no prior imaging (Age >= 16y) TECHNIQUE: * Multidetector-row CT of the thoracic spine was performed without intravenous contrast using tailored dose modulation techniques. Images were reconstructed in the axial, coronal, and sagittal planes. * Multidetector-row CT of the lumbar spine was performed without intravenous contrast using tailored dose modulation techniques. Images were reconstructed in the axial, coronal, and sagittal planes. COMPARISON: MRI lumbar spine 04/09/2025 FINDINGS: THORACIC SPINE: Alignment and Vertebrae: Alignment is normal. Vertebral bodies and posterior elements are intact. Discs and Endplates: Multilevel degenerative changes. Soft Tissue: No prevertebral soft tissue thickening. Other Findings: Bibasilar atelectasis. A calcified pulmonary nodule in the right lung apex. LUMBAR SPINE: Alignment and Vertebrae: Alignment is normal. Vertebral bodies and posterior elements are intact. A sclerotic focus in the left lateral aspect of L3 vertebral body, likely a bone island. The sacroiliac joints are maintained. Discs and Endplates: There are degenerative changes. No high-grade bony spinal canal stenosis. The degenerative changes are better characterized on prior MRI lumbar spine. Soft Tissue: No prevertebral soft tissue thickening. Other Findings: Punctate calcifications in bilateral kidneys may represent vascular calcification versus nonobstructing calculi. Cysts. Procedure Note Ash Pretty MBBS - 05/14/2025 CT THORACIC SPINE WITHOUT CONTRAST, CT LUMBAR SPINE WITHOUT CONTRAST Referring clinician's provided indication for this examination in Epic: *Back trauma, no prior imaging (Age >= 16y) TECHNIQUE: * Multidetector-row CT of the thoracic spine was performed withoutintravenous contrast using tailored dose modulation techniques. Imageswere reconstructed in the axial, coronal, and sagittal planes. * Multidetector-row CT of the lumbar spine was performed withoutintravenous contrast using tailored dose modulation techniques. Imageswere reconstructed in the axial, coronal, and sagittal planes. COMPARISON: MRI lumbar spine 04/09/2025 FINDINGS: THORACIC SPINE: Alignment and Vertebrae: Alignment is normal. Vertebral bodies andposterior elements are intact. Discs and Endplates: Multilevel degenerative changes. Soft Tissue: No prevertebral soft tissue thickening. Other Findings: Bibasilar atelectasis. A calcified pulmonary nodule in theright lung apex. LUMBAR SPINE: Alignment and Vertebrae: Alignment is normal. Vertebral bodies andposterior elements are intact. A sclerotic focus in the left lateralaspect of L3 vertebral body, likely a bone island. The sacroiliac jointsare maintained. Discs and Endplates: There are degenerative changes. No high-grade bonyspinal canal stenosis. The degenerative changes are better characterizedon prior MRI lumbar spine. Soft Tissue: No prevertebral soft tissue thickening. Other Findings: Punctate calcifications in bilateral kidneys may representvascular calcification versus nonobstructing calculi. Cysts. IMPRESSION: 1. No acute fracture or traumatic malalignment in the thoracic or lumbarspine. us Candida MERAZ CT XSPECIALTY ORD ERABLES Final Result * CT LUMBAR SPINE WITHOUT CONTRAST (05/14/2025 3:45 PM EDT) Anatomical Region Laterality Modality L-spine Computed Tomogra phy 05/14/2025 4:35 PM EDT Impressions 05/14/2025 4:49 PM EDT 1. No acute fracture or traumatic malalignment in the thoracic or lumbar spine. Narrative 05/14/2025 4:[address] THORACIC SPINE WITHOUT CONTRAST, CT LUMBAR SPINE WITHOUT CONTRAST Referring clinician's provided indication for this examination in [facility]: * Back trauma, no prior imaging (Age >= 16y) TECHNIQUE: * Multidetector-row CT of the thoracic spine was performed without intravenous contrast using tailored dose modulation techniques. Images were reconstructed in the axial, coronal, and sagittal planes. * Multidetector-row CT of the lumbar spine was performed without intravenous contrast using tailored dose modulation techniques. Images were reconstructed in the axial, coronal, and sagittal planes. COMPARISON: MRI lumbar spine 04/09/2025 FINDINGS: THORACIC SPINE: Alignment and Vertebrae: Alignment is normal. Vertebral bodies and posterior elements are intact. Discs and Endplates: Multilevel degenerative changes. Soft Tissue: No prevertebral soft tissue thickening. Other Findings: Bibasilar atelectasis. A calcified pulmonary nodule in the right lung apex. LUMBAR SPINE: Alignment and Vertebrae: Alignment is normal. Vertebral bodies and posterior elements are intact. A sclerotic focus in the left lateral aspect of L3 vertebral body, likely a bone island. The sacroiliac joints are maintained. Discs and Endplates: There are degenerative changes. No high-grade bony spinal canal stenosis. The degenerative changes are better characterized on prior MRI lumbar spine. Soft Tissue: No prevertebral soft tissue thickening. Other Findings: Punctate calcifications in bilateral kidneys may represent vascular calcification versus nonobstructing calculi. Cysts. Procedure Note Ash Pretty MBBS - 05/14/2025 CT THORACIC SPINE WITHOUT CONTRAST, CT LUMBAR SPINE WITHOUT CONTRAST Referring clinician's provided indication for this examination in [facility]: *Back trauma, no prior imaging (Age >= 16y) TECHNIQUE: * Multidetector-row CT of the thoracic spine was performed withoutintravenous contrast using tailored dose modulation techniques. Imageswere reconstructed in the axial, coronal, and sagittal planes. * Multidetector-row CT of the lumbar spine was performed withoutintravenous contrast using tailored dose modulation techniques. Imageswere reconstructed in the axial, coronal, and sagittal planes. COMPARISON: MRI lumbar spine 04/09/2025 FINDINGS: THORACIC SPINE: Alignment and Vertebrae: Alignment is normal. Vertebral bodies andposterior elements are intact. Discs and Endplates: Multilevel degenerative changes. Soft Tissue: No prevertebral soft tissue thickening. Other Findings: Bibasilar atelectasis. A calcified pulmonary nodule in theright lung apex. LUMBAR SPINE: Alignment and Vertebrae: Alignment is normal. Vertebral bodies andposterior elements are intact. A sclerotic focus in the left lateralaspect of L3 vertebral body, likely a bone island. The sacroiliac jointsare maintained. Discs and Endplates: There are degenerative changes. No high-grade bonyspinal canal stenosis. The degenerative changes are better characterizedon prior MRI lumbar spine. Soft Tissue: No prevertebral soft tissue thickening. Other Findings: Punctate calcifications in bilateral kidneys may representvascular calcification versus nonobstructing calculi. Cysts. IMPRESSION: 1. No acute fracture or traumatic malalignment in the thoracic or lumbarspine. Candida CORTEZ-C IMG CT XSPECIALTY ORD ERABLES Final Result * CT CERVICAL SPINE WITHOUT CONTRAST (05/14/2025 3:45 PM EDT) Anatomical Region Laterality Modality C-spine Computed Tomogra phy 05/14/2025 4:33 PM EDT Impressions 05/14/2025 4:41 PM EDT 1. No acute intracranial findings. 2. Mild soft tissue swelling and subcutaneous emphysema in the left temporal region, most compatible with recent trauma. No underlying acute osseous abnormalities. 3. No acute fracture or traumatic malalignment of the cervical spine. Narrative 05/14/2025 4:[address] HEAD WITHOUT CONTRAST, CT CERVICAL SPINE WITHOUT CONTRAST Referring clinician's provided indication for this examination in Epic: * Head trauma, minor (Age >= 65y) TECHNIQUE: CTs of the head and cervical spine were performed without intravenous contrast using tailored dose modulation techniques. Images were reconstructed in the axial, coronal, and sagittal planes. COMPARISON: None available. FINDINGS: HEAD: Brain Parenchyma: No midline shift, mass effect, parenchymal hemorrhage, or evidence of acute territorial infarct. Hypodensities in the periventricular white matter, likely a manifestation of chronic small vessel disease. Ventricular System and Extra-Axial Spaces: The ventricles and sulci are prominent. No extra-axial fluid collections. Basilar cisterns are patent. No hydrocephalus. Osseous and Extracranial Structures: There is mild soft tissue swelling and subcutaneous emphysema in the left temporal region, most compatible with recent trauma. No underlying acute osseous abnormalities are identified. There is mild mucosal thickening in the paranasal sinuses. The mastoid air cells are clear. No orbital abnormality. CERVICAL SPINE: Alignment and Vertebrae: Alignment is normal. Vertebral bodies and posterior elements are intact. Discs and Endplates: There are mild multilevel degenerative disc disease changes of the cervical spine without high-grade spinal canal stenosis. Other Findings: The visualized aerodigestive tract is unremarkable. The thyroid is atrophied. There is no suspicious lymphadenopathy in the neck. There is mild biapical pleural scarring. Procedure Note Humza Rios MD - 05/14/2025 CT HEAD WITHOUT CONTRAST, CT CERVICAL SPINE WITHOUT CONTRAST Referring clinician's provided indication for this examination in Epic: *Head trauma, minor (Age >= 65y) TECHNIQUE: CTs of the head and cervical spine were performed withoutintravenous contrast using tailored dose modulation techniques. Imageswere reconstructed in the axial, coronal, and sagittal planes. COMPARISON: None available. FINDINGS: HEAD: Brain Parenchyma: No midline shift, mass effect, parenchymal hemorrhage,or evidence of acute territorial infarct. Hypodensities in theperiventricular white matter, likely a manifestation of chronic smallvessel disease. Ventricular System and Extra-Axial Spaces: The ventricles and sulci areprominent. No extra-axial fluid collections. Basilar cisterns are patent.No hydrocephalus. Osseous and Extracranial Structures: There is mild soft tissue swellingand subcutaneous emphysema in the left temporal region, most compatiblewith recent trauma. No underlying acute osseous abnormalities areidentified. There is mild mucosal thickening in the paranasal sinuses. Themastoid air cells are clear. No orbital abnormality. CERVICAL SPINE: Alignment and Vertebrae: Alignment is normal. Vertebral bodies andposterior elements are intact. Discs and Endplates: There are mild multilevel degenerative disc diseasechanges of the cervical spine without high-grade spinal canal stenosis. Other Findings: The visualized aerodigestive tract is unremarkable. Thethyroid is atrophied. There is no suspicious lymphadenopathy in the neck.There is mild biapical pleural scarring. IMPRESSION: 1. No acute intracranial findings. 2. Mild soft tissue swelling and subcutaneous emphysema in the lefttemporal region, most compatible with recent trauma. No underlying acuteosseous abnormalities. 3. No acute fracture or traumatic malalignment of the cervical spine. Candida Recinos PA-C IMG CT XSPECIALTY ORD ERABLES Final Result * CT HEAD WITHOUT CONTRAST (05/14/2025 3:45 PM EDT) Anatomical Region Laterality Modality Head Computed Tomogra phy 05/14/2025 4:33 PM EDT Impressions 05/14/2025 4:41 PM EDT 1. No acute intracranial findings. 2. Mild soft tissue swelling and subcutaneous emphysema in the left temporal region, most compatible with recent trauma. No underlying acute osseous abnormalities. 3. No acute fracture or traumatic malalignment of the cervical spine. Narrative 05/14/2025 4:[address] HEAD WITHOUT CONTRAST, CT CERVICAL SPINE WITHOUT CONTRAST Referring clinician's provided indication for this examination in Epic: * Head trauma, minor (Age >= 65y) TECHNIQUE: CTs of the head and cervical spine were performed without intravenous contrast using tailored dose modulation techniques. Images were reconstructed in the axial, coronal, and sagittal planes. COMPARISON: None available. FINDINGS: HEAD: Brain Parenchyma: No midline shift, mass effect, parenchymal hemorrhage, or evidence of acute territorial infarct. Hypodensities in the periventricular white matter, likely a manifestation of chronic small vessel disease. Ventricular System and Extra-Axial Spaces: The ventricles and sulci are prominent. No extra-axial fluid collections. Basilar cisterns are patent. No hydrocephalus. Osseous and Extracranial Structures: There is mild soft tissue swelling and subcutaneous emphysema in the left temporal region, most compatible with recent trauma. No underlying acute osseous abnormalities are identified. There is mild mucosal thickening in the paranasal sinuses. The mastoid air cells are clear. No orbital abnormality. CERVICAL SPINE: Alignment and Vertebrae: Alignment is normal. Vertebral bodies and posterior elements are intact. Discs and Endplates: There are mild multilevel degenerative disc disease changes of the cervical spine without high-grade spinal canal stenosis. Other Findings: The visualized aerodigestive tract is unremarkable. The thyroid is atrophied. There is no suspicious lymphadenopathy in the neck. There is mild biapical pleural scarring. Procedure Note Humza Rios MD - 05/14/2025 CT HEAD WITHOUT CONTRAST, CT CERVICAL SPINE WITHOUT CONTRAST Referring clinician's provided indication for this examination in Epic: *Head trauma, minor (Age >= 65y) TECHNIQUE: CTs of the head and cervical spine were performed withoutintravenous contrast using tailored dose modulation techniques. Imageswere reconstructed in the axial, coronal, and sagittal planes. COMPARISON: None available. FINDINGS: HEAD: Brain Parenchyma: No midline shift, mass effect, parenchymal hemorrhage,or evidence of acute territorial infarct. Hypodensities in theperiventricular white matter, likely a manifestation of chronic smallvessel disease. Ventricular System and Extra-Axial Spaces: The ventricles and sulci areprominent. No extra-axial fluid collections. Basilar cisterns are patent.No hydrocephalus. Osseous and Extracranial Structures: There is mild soft tissue swellingand subcutaneous emphysema in the left temporal region, most compatiblewith recent trauma. No underlying acute osseous abnormalities areidentified. There is mild mucosal thickening in the paranasal sinuses. Themastoid air cells are clear. No orbital abnormality. CERVICAL SPINE: Alignment and Vertebrae: Alignment is normal. Vertebral bodies andposterior elements are intact. Discs and Endplates: There are mild multilevel degenerative disc diseasechanges of the cervical spine without high-grade spinal canal stenosis. Other Findings: The visualized aerodigestive tract is unremarkable. Thethyroid is atrophied. There is no suspicious lymphadenopathy in the neck.There is mild biapical pleural scarring. IMPRESSION: 1. No acute intracranial findings. 2. Mild soft tissue swelling and subcutaneous emphysema in the lefttemporal region, most compatible with recent trauma. No underlying acuteosseous abnormalities. 3. No acute fracture or traumatic malalignment of the cervical spine. Candida Recinos PA-C IMG CT HEAD/NECK Glory l Result * MRI CHOLANGIOPANCREATOGRAPHY (MRCP) WITH AND WITHOUT CONTRAST (05/10/2025 6:03 PM EDT) Anatomical Region Laterality Modality Pancreas, Biliary Magnetic Reson ance 05/12/2025 4:20 PM EDT Impressions 05/12/2025 4:36 PM EDT 1. Similar mild main pancreatic ductal prominence with multiple subcentimeter sidebranch IPMN. Continued imaging follow-up in one year is advised. Narrative 05/12/2025 4:36 PM EDT MRI CHOLANGIOPANCREATOGRAPHY (MRCP) WITH AND WITHOUT CONTRAST Referring clinician's provided indication for this examination in Epic: Outside Radiology Order; IPMN TECHNIQUE: Multiplanar MR imaging of the abdomen was performed using T1, T2, fat saturated, and diffusion weighted techniques. 2D and 3D MRCP sequences were performed. Dynamic multiphase imaging was also performed after administration of an intravenous gadolinium contrast agent. COMPARISON: 04/18/2024, 05/16/2023 FINDINGS: Lower Chest: No effusions. Liver: Few subcentimeter cysts. Biliary: The gallbladder is surgically absent. No biliary ductal dilatation. Spleen: No splenomegaly or focal lesion. Pancreas: Postsurgical changes status post Whipple procedure. Multiple cystic lesions within the pancreatic tail, for example measuring 6 mm (series 5, image 20), 5 mm the pancreatic body (series 5, image 20). Additional smaller lesions, unchanged. Adrenal Glands: No nodules. Kidneys/Ureters: Bilateral renal cysts with no suspicious features. No solid masses or hydronephrosis. Bowel: No dilatation or wall thickening. Peritoneum/Retroperitoneum: Normal. No masses or fluid. Lymph Nodes: No lymphadenopathy. Vessels: No abdominal aortic aneurysm. Patent main portal vein. Replaced left hepatic artery. Bones/Soft Tissues: Multilevel degenerative changes of the thoracolumbar spine. Please note, this protocol is nonoptimized for the evaluation of osseous structures. Postsurgical changes of the anterior abdominal wall Procedure Note Alvina Smith MD - 05/12/2025 MRI CHOLANGIOPANCREATOGRAPHY (MRCP) WITH AND WITHOUT CONTRAST Referring clinician's provided indication for this examination in Epic:Outside Radiology Order; IPMN TECHNIQUE: Multiplanar MR imaging of the abdomen was performed using T1,T2, fat saturated, and diffusion weighted techniques. 2D and 3D MRCPsequences were performed. Dynamic multiphase imaging was also performedafter administration of an intravenous gadolinium contrast agent. COMPARISON: 04/18/2024, 05/16/2023 FINDINGS: Lower Chest: No effusions. Liver: Few subcentimeter cysts. Biliary: The gallbladder is surgically absent. No biliary ductaldilatation. Spleen: No splenomegaly or focal lesion. Pancreas: Postsurgical changes status post Whipple procedure. Multiplecystic lesions within the pancreatic tail, for example measuring 6 mm(series 5, image 20), 5 mm the pancreatic body (series 5, image 20). Additional smaller lesions, unchanged. Adrenal Glands: No nodules. Kidneys/Ureters: Bilateral renal cysts with no suspicious features. Nosolid masses or hydronephrosis. Bowel: No dilatation or wall thickening. Peritoneum/Retroperitoneum: Normal. No masses or fluid. Lymph Nodes: No lymphadenopathy. Vessels: No abdominal aortic aneurysm. Patent main portal vein. Replaced left hepatic artery. Bones/Soft Tissues: Multilevel degenerative changes of the thoracolumbarspine. Please note, this protocol is nonoptimized for the evaluation ofosseous structures. Postsurgical changes of the anterior abdominal wall IMPRESSION: 1. Similar mild main pancreatic ductal prominence with multiplesubcentimeter sidebranch IPMN. Continued imaging follow-up in one year isadvised. us Marie Yarbrough CNP IMG MR ABDOMEN Final Resu lt * MRI LUMBAR SPINE (NEURO) WITHOUT CONTRAST (04/09/2025 4:46 PM EDT) Anatomical Region Laterality Modality L-spine Magnetic Resonan ce 04/10/2025 3:47 PM EDT Impressions 04/10/2025 3:56 PM EDT 1. Multilevel degenerative changes as detailed above, most prominent at L4-L5 with mild bilateral subarticular and moderate bilateral foraminal stenosis, worse on the LEFT, similar to minimally worsened compared with December 23, 2022. Narrative 04/10/2025 3:56 PM EDT MRI LUMBAR SPINE (NEURO) WITHOUT CONTRAST Referring clinician's provided indication for this examination in Epic: Outside Radiology Order; * Spinal stenosis, lumbosacral; LOW BACK PAIN TECHNIQUE: MRI LUMBAR SPINE (NEURO) WITHOUT CONTRAST Multi-sequence, multi-planar MRI of the lumbar spine was performed without intravenous contrast. COMPARISON: MRI LUMBAR SPINE (NEURO) WITHOUT CONTRAST 2022- FINDINGS: LUMBAR SPINE: Alignment and Vertebrae: Normal alignment. No compression fracture. Marrow: No bone marrow replacing lesion. Discs and Endplates: Multilevel disc desiccation with no significant loss of disc height. Small Schmorl's nodule along the inferior endplate of L1, increased in size compared with prior. Minimal intravesical L4 on L5, similar to prior. Conus: Normal. Soft Tissues: No prevertebral edema. Other Findings: Very faint density measuring up to 1.6 cm in the LEFT retroperitoneum, level L2-L3, series 5 image 18 and series 4 image 15, could represent sequela of fat necrosis, if clinically warranted, CT of the abdomen could be obtained for improved evaluation. Findings by level: T12-L1: No spinal or foraminal stenosis. L1-L2: No spinal or foraminal stenosis. L2-L3: No spinal or foraminal stenosis. L3-L4: No spinal or foraminal stenosis. L4-L5: Mild disc bulge with fumr-je-ejbudflp facet arthropathy contributing to mild bilateral subarticular and moderate bilateral foraminal stenosis, worse on the LEFT, similar to minimally worsened compared with prior. L5-S1: Mild disc bulge with mild facet arthropathy contributing to hgvy-ix-nevyqhor bilateral foraminal stenosis. Procedure Note Gilbert Bullock MD, PhD - 04/10/2025 MRI LUMBAR SPINE (NEURO) WITHOUT CONTRAST Referring clinician's provided indication for this examination in Epic:Outside Radiology Order; * Spinal stenosis, lumbosacral; LOW BACK PAIN TECHNIQUE: MRI LUMBAR SPINE (NEURO) WITHOUT CONTRAST Multi-sequence, multi-planar MRI of the lumbar spine was performed withoutintravenous contrast. COMPARISON: MRI LUMBAR SPINE (NEURO) WITHOUT CONTRAST 2022- FINDINGS: LUMBAR SPINE: Alignment and Vertebrae: Normal alignment. No compression fracture. Marrow: No bone marrow replacing lesion. Discs and Endplates: Multilevel disc desiccation with no significant lossof disc height. Small Schmorl's nodule along the inferior endplate of L1,increased in size compared with prior. Minimal intravesical L4 on L5,similar to prior. Conus: Normal. Soft Tissues: No prevertebral edema. Other Findings: Very faint density measuring up to 1.6 cm in the LEFTretroperitoneum, level L2-L3, series 5 image 18 and series 4 image 15,could represent sequela of fat necrosis, if clinically warranted, CT ofthe abdomen could be obtained for improved evaluation. Findings by level: T12-L1: No spinal or foraminal stenosis. L1-L2: No spinal or foraminal stenosis. L2-L3: No spinal or foraminal stenosis. L3-L4: No spinal or foraminal stenosis. L4-L5: Mild disc bulge with pora-st-yicvzqvw facet arthropathycontributing to mild bilateral subarticular and moderate bilateralforaminal stenosis, worse on the LEFT, similar to minimally worsenedcompared with prior. L5-S1: Mild disc bulge with mild facet arthropathy contributing vtducw-ld-bbwpgmvv bilateral foraminal stenosis. IMPRESSION: 1. Multilevel degenerative changes as detailed above, most prominent atL4-L5 with mild bilateral subarticular and moderate bilateral foraminalstenosis, worse on the LEFT, similar to minimally worsened compared withMa2022. Portia ARREOLAP IMG MR XSPECIALTY Final Res ult * (ABNORMAL) Comprehensive metabolic panel (07/29/2021 11:08 AM EST) SODIUM 145 133 - 146 mmol/L [facility] POTASSIUM 4.3 3.3 - 5.1 mmol/L [facility] CHLORIDE 106 96 - 108 mmol/L [facility] CO2 25 21 - 35 mmol/L [facility] BUN 24(H) 6 - 19 mg/dL [facility] CREATININE 1.30 0.5 - 1.5 mg/dL [facility] GLUCOSE 142(H) 70 - 99 mg/dL [facility] ALBUMIN 4.4 3.9 - 4.8 g/dL [facility] TOTAL PROTEIN 6.9 6.5 - 8.0 g/dL [facility] CALCIUM 9.2 8.4 - 10.3 mg/dL [facility] ALKALINE PHOSPHATASE 57 39 - 117 U/L [facility] TOTAL BILIRUBIN 0.4 0.0 - 1.2 mg/dL [facility] AST 19 0 - 37 U/L [facility] ALT 12 0 - 40 U/L [facility] GLOBULIN 2.5 1 - 4.8 g/dL [facility] EGFR 58(L) >59 mL/min/1.7 3m2 [facility] Comment:Estimated glomerular filtration rate calculated using the CKD-EPI refit equation. ANION GAP 18 10 - 20 mmol/L [facility] Blood 07/29/2021 11:0 8 AM EST 07/29/2021 11:13 AM EST us Kerline CORTEZ LAB BLOOD ORDERABLES Final Resul t [facility] [address] [place], [place] [id number] from Last 3 Months or Most Recently Relevant to Health Maintenance Insurance [place] [id number] [facility] MEDICARE PART A & B [facility] MEDICARE PART A & B [place] [facility] [facility] MEDICARE PART A & B [facility] MEDICARE PART A & B [facility] MEDICARE PART A & B [id number] [place] [address] MEDICARE PART A & B [facility] MEDICARE PART A & B [facility] [place] INSURANCE MEDICARE PART A & B [facility] Care Teams Marketing Automation Manager Relationship Specialty Start Date End Date Liu Song MD [address] [place] [email or web address] PCP - General Family Medicine 07/18/18 Additional Source Comments The information contained in this document represents components of the legal health record. It is not the complete legal health record.[facility]
--- OUTSIDE RECORDS SUMMARY | 2025-05-21 13:06 | XMS_ITS | Encounter Summary ---
Author Organization [facility] Address [address] [place] [address] [place] [address] Phone Care Team Providers Care Retail Tire Sales Manager Name Role Phone David Palacio MD Unavailable [phone] Tony Hauser MD Primary Care Provider [phone] Liu Song MD Primary Care Provider [phone] Encounter Details Date Type Department Care Team (Late st Contact Info) Description 09/17/2017 Transcribe Orders [facility] Laboratory [address] [place] [address] Liu Song MD [address] [place] [email or web address] Elevated glucose (Primary Dx) Social History Tobacco Use Types [...] Description 11/05/2025 9:00 AM EDT Office Visit [facility] Medicine [address] [place] [address] Sharon Stearns MD [address] [facility], [address] [place] [address] [email or web address] documented as of this encounter Results * Insulin Level (09/17/2017 10:39 AM EST) INSULIN 11.1 2.6 - 24.9 mcIU/mL [facility] Blood 09/17/2017 10:3 9 AM EST 09/17/2017 10:42 AM EST us Liu Song MD LAB BLOOD ORDERABLES Final Res ult Performing Organization Address [facility]/ZIP Co de Phone Number [facility] LAB MED/[address] [place] [address] * Glucose, fasting (09/17/2017 10:39 AM EST) FASTING GLUCOSE 105 70 - 110 mg/dL [facility] Blood 09/17/2017 10:3 9 AM EST 09/17/2017 10:42 AM EST us Liu Song MD LAB BLOOD ORDERABLES Final Res ult Performing Organization Address City/[facility]/ZIP Co de Phone Number [facility] [address] [place] [address] documented in this encounter Visit Diagnoses Diagnosis Elevated glucose- Primary Other abnormal glucose documented in this encounter Additional Health Concerns [...] documented as of this encounter Care Teams Retail Tire Sales Manager Relationship Specialty Start Date End Date Tony Hauser MD [address] [place] [address] [place] [address] PCP - General 08/27/16 07/17/18 Liu Song MD [address] [place] [phone] [email or web address] PCP - General Family Medicine 07/18/18 David Palacio MD [address] [place] [address] [place] [address] [email or web address] Historical LMR Provider 12/29/14 08/23/21 documented as of this encounter Additional Source Comments The information contained in this document represents components of the legal health record. It is not the complete legal health record.[facility]
--- OUTSIDE RECORDS SUMMARY | 2025-05-21 13:06 | XMS_ITS | Encounter Summary ---
Author Organization [facility] Address [facility] [employer] [facility] [address] [place] [address] Phone Care Team Providers Care Animal Physiologist Name Role Phone David Palacio MD Unavailable [phone] Tony Hauser MD Primary Care Provider [phone] Liu Song MD Primary Care Provider [phone] Encounter Details Date Type Department Care Team (Latest Contact Info) Description 03/14/2018 Transcribe Orders [facility] Laboratory [address] [place] [address] Tony Hauser MD [address] [place] [address] [address] [place] [address] Cyst of pancreas (Primary Dx) Social History Tobacco Use Types [...] Description 11/05/2025 9:00 AM EDT Office Visit [facility] Medicine [address] [place] [address] Sharon Stearns MD [address] [facility], [address] [place] [address] [email or web address] documented as of this encounter Results * (ABNORMAL) Lipase (03/14/2018 4:10 PM EDT) LIPASE 9(L) 16 - 63 U/L [facility] Blood 03/14/2018 4:10 PM EDT 03/14/2018 4:17 PM EDT Tony Hauser MD LAB BLOOD ORDERABLES Glory l Result Performing Organization Address [facility] Co de Phone Number [address] [address] * Amylase (03/14/2018 4:10 PM EDT) AMYLASE 63 28 - 100 U/L [facility] Blood 03/14/2018 4:10 PM EDT 03/14/2018 4:17 PM EDT Tony Hauser MD LAB BLOOD ORDERABLES Glory l Result Performing Organization Address [facility] Co de Phone Number [address] [address] documented in this encounter Visit Diagnoses Diagnosis Cyst of pancreas- Primary Cyst and pseudocyst of pancreas documented in this encounter Additional Health Concerns [...] Triage Form 05/09/2022 05/12/2022 05/20/2022 1:22 AM EDT CoV-Risk Comment:Per Ambulatory Triage Form 05/27/2022 05/28/202206/08 1:22 AM EDT CoV-Risk 07/28/2022 07/28/2022 07/29/2022 11:5 3 AM EST CoV-Exposed Comment:Positive COVID-19 07/28/2022 07/28/2022 07/29/2022 11: 53 AM EST COVID-19 07/28/2022 07/28/2022 08/18/2022 1:22 AM EST CoV-Risk 12/13/2023 12/15/2023 12/26/2023 1:21 AM EDT CoV-Risk 01/17/2024 01/17/2024 01/28/2024 1:22 AM EDT documented as of this encounter Care Teams Animal Physiologist Relationship Specialty Start Date End Date Tony Hauser MD [address] [place] [address] [place] [address] PCP - General 08/27/16 07/17/18 Liu Song MD [address] [place] [address] [email or web address] PCP - General Family Medicine 07/18/18 David Palacio MD [address] [place] [address] [place] [address] [email or web address] Historical LMR Provider 12/29/14 08/23/21 documented as of this encounter Additional Source Comments The information contained in this document represents components of the legal health record. It is not the complete legal health record.[facility]
--- OUTSIDE RECORDS SUMMARY | 2025-05-21 13:06 | XMS_ITS | Encounter Summary ---
Author Organization [facility] Address [address] [place] [address] [place] [address] Phone Care Team Providers Care Electric Welder Name Role Phone David Palacio MD Unavailable [phone] Liu Song MD Primary Care Provider [phone] Encounter Details Date Type Department Care Team (Latest Contact Info) Description 07/18/2018 Transcribe Orders [facility] Laboratory [address] [address] Lisandro Lopes MD [address] [place] [email or web address] Nausea (Primary Dx) Social History Tobacco Use Types [...] Description 11/05/2025 9:00 AM EDT Office Visit [facility] [address] [place], [place] [phone] Sharon Stearns MD [address] [place] [address], [address] [place] [address] [email or web address] documented as of this encounter Results * (ABNORMAL) Basic metabolic panel (07/18/2018 10:02 AM EST) SODIUM 142 133 - 146 mmol/L [facility] CHLORIDE 106 96 - 108 mmol/L [facility] POTASSIUM 4.6 3.3 - 5.1 mmol/L [facility] CO2 25 21 - 35 mmol/L [facility] BUN 20(H) 6 - 19 mg/dL [facility] CREATININE 1.00 0.5 - 1.5 mg/dL [facility] GLUCOSE 124(H) 70 - 99 mg/dL [facility] CALCIUM 9.1 8.4 - 10.3 mg/dL [facility] EGFR 76 >59 mL/min/1.7 3m2 [facility] Comment:If patient is black, multiply result by 1.159. Estimated glomerular filtration rate calculated using the CKD-EPI equation. ANION GAP 16 10 - 20 mmol/L [facility] Blood 07/18/2018 10:0 2 AM EST 07/18/2018 10:05 AM EST us Lisandro Lopes MD LAB BLOOD ORDERABLES Final Re sult [facility] [address] [place] [address] documented in this encounter Visit Diagnoses Diagnosis Nausea- Primary Nausea alone documented in this encounter Additional Health Concerns [...] documented as of this encounter Care Teams Electric Welder Relationship Specialty Start Date End Date Liu Song MD [address] [place] [phone] [email or web address] PCP - General Family Medicine 07/18/18 David Palacio MD [address] [place] [address] [place] [address] [email or web address] Historical LMR Provider 12/29/14 08/23/21 documented as of this encounter Additional Source Comments The information contained in this document represents components of the legal health record. It is not the complete legal health record.[facility]
--- OUTSIDE RECORDS SUMMARY | 2025-05-21 13:06 | XMS_ITS | Encounter Summary ---
Author Organization [facility] Address [facility] [employer] [facility] [address] [place] [address] Phone Care Team Providers Care Analytical Technician Name Role Phone David Palacio MD Unavailable [phone] Liu Song MD Primary Care Provider [phone] Encounter Details Date Type Department Care Team (Late st Contact Info) Description 04/12/2020 Procedure Pass [facility], [address] [address] Social History Tobacco Use Types Packs/Day Years [...] Description 11/05/2025 9:00 AM EDT Office Visit [facility] Medicine [address] [place] [address] Sharon Stearns MD [address] [facility], [address] [place] [address] [email or web address] documented as of this encounter Visit Diagnoses Not on filedocumented in this encounter Additional Health Concerns Infection Onset Date Last Indicated Resolved Time CoV-Risk 07/25/2020 07/25/2020 08/08/2020 1:25 AM EST [...] documented as of this encounter Care Teams Analytical Technician Relationship Specialty Start Date End Date Liu Song MD [address] [place] [address] [email or web address] PCP - General Family Medicine 07/18/18 David Palacio MD [address] [place] [address] [place] [address] [email or web address] Historical LMR Provider 12/29/14 08/23/21 documented as of this encounter Additional Source Comments The information contained in this document represents components of the legal health record. It is not the complete legal health record.[facility]
--- OUTSIDE RECORDS SUMMARY | 2025-05-21 13:06 | XMS_ITS | Encounter Summary ---
Author Organization [facility] Address [address] [place] [address] [place] [address] Phone Care Team Providers Care Government Relations Director Name Role Phone David Palacio MD Unavailable [phone] Tony Hauser MD Primary Care Provider [phone] Liu Song MD Primary Care Provider [phone] Encounter Details Date Type Department Care Team (Late st Contact Info) Description 09/17/2017 Transcribe Orders [facility] [address] [place] [address] Liu Song MD [address] [place] [address] [email or web address] Elevated fasting glucose (Primary Dx) Social History Tobacco Use [...] Description 11/05/2025 9:00 AM EDT Office Visit [facility] [address] [place] [address] Sharon Stearns MD 234 [facility], [address] [place] [address] [email or web address] documented as of this encounter Results * (ABNORMAL) Insulin Level (09/17/2017 1:49 PM EST) INSULIN 84.9(H) 2.6 - 24.9 mcIU/mL [facility] Blood 09/17/2017 1:49 PM EST 09/17/2017 1:52 PM EST us Liu Song MD LAB BLOOD ORDERABLES Final Res ult Performing Organization Address City/[facility]/ZIP Co de Phone Number [facility] [address] [place] [address] * Glucose, 2 hr - Post Prandial (09/17/2017 1:49 PM EST) GLU 2 HR POST PRAND 105 70 - 139 mg/dL [facility] Blood 09/17/2017 1:49 PM EST 09/17/2017 1:53 PM EST us Liu Song MD LAB BLOOD ORDERABLES Final Res ult Performing Organization Address City/[facility] Co de Phone Number [address] [address] documented in this encounter Visit Diagnoses Diagnosis Elevated fasting glucose- Primary Impaired fasting glucose documented in this encounter Additional Health [...] documented as of this encounter Care Teams Government Relations Director Relationship Specialty Start Date End Date Tony Hauser MD [address] [place] [address] [place] [address] PCP - General 08/27/16 07/17/18 Liu Song MD [address] [place] [address] [email or web address] PCP - General Family Medicine 07/18/18 David Palacio MD [address] [place] [address] [place] [address] [email or web address] Historical LMR Provider 12/29/14 08/23/21 documented as of this encounter Additional Source Comments The information contained in this document represents components of the legal health record. It is not the complete legal health record.[facility]
--- OUTSIDE RECORDS SUMMARY | 2025-05-21 13:06 | XMS_ITS | Encounter Summary ---
Author Organization [facility] Address [address] [place] [address] [place] [address] Phone Care Team Providers Care Supervisor Grove Name Role Phone Liu Song MD Primary Care Provider [phone] Reason for Referral * MRI/CAT Scan - Closed Specialty Diagnoses / Procedures Referred By Erfem t Referred To Contact Radiology Diagnoses IPMN (intraductal papillary mucinous neoplasm) Bile reflux gastritis Procedures MRI Cholangiopancreatography (MRCP) Marie Yarbrough CNP Phone: tel: fax: [email or web address] Referral ID Status Reason Start Date Expiration Date Visits Re quested Visits Authorized [id number] Closed 12/30/2023 12/29/2024 1 1 Encounter Details Date Type Department Care Team (Latest Contact Info) Description 12/30/2023 Transcribe Orders Virtual Department 30 [place] [address] Marie Yarbrough CNP [address] [place], [place] [id number] IPMN (intraductal papillary mucinous neoplasm) (Primary Dx); Bile reflux gastritis Social History Tobacco Use Types Packs/Day Years [...] Description 11/05/2025 9:00 AM EDT Office Visit [facility] [address] [place] [address] Sharon Stearns MD 234 [facility], [address] [place] [address] [email or web address] documented as of this encounter Results * MRI CHOLANGIOPANCREATOGRAPHY (MRCP) WITH AND WITHOUT CONTRAST (04/18/2024 5:40 PM EDT) Anatomical Region Laterality Modality Pancreas, Biliary Magnetic Reson ance 04/21/2024 5:30 PM EDT Impressions 04/21/2024 5:39 PM EDT 1. Unchanged subcentimeter pancreatic side branch IPMNs without suspicious features. Suggest follow-up study in one year time. Narrative 04/21/2024 5:39 PM EDT MRI CHOLANGIOPANCREATOGRAPHY (MRCP) WITH AND WITHOUT CONTRAST Referring clinician's provided indication for this examination in Epic: Outside Radiology Order; IPMN TECHNIQUE: Multiplanar MR imaging of the abdomen was performed using T1, T2, fat saturated, and diffusion weighted techniques. 2D and 3D MRCP sequences were performed. Dynamic multiphase imaging was also performed after administration of an intravenous gadolinium contrast agent. COMPARISON: None FINDINGS: Lower Chest: Normal. No effusions. Liver: Small subcentimeter cysts again noted. No new focal suspicious hepatic lesions identified. Biliary: Status post cholecystectomy. No dilated biliary ducts Spleen: Normal. No splenomegaly or focal lesions. Pancreas: Prior Whipple procedure. There is some mild pancreatic duct irregularity but no significant dilatation in the remnant. Scattered cysts measuring up to 6 mm in diameter not significantly changed. No solid masses or significant solid masslike enhancement identified. Adrenal Glands: Normal. No nodules. Kidneys/Ureters: No hydronephrosis in either kidney. No solid renal masses. Bilateral renal cysts Bowel: Normal. No dilatation or wall thickening. Peritoneum/Retroperitoneum: Normal. No masses or fluid. Lymph Nodes: Normal. No lymphadenopathy. Vessels: Normal. No abdominal aortic aneurysm. Bones/Soft Tissues: There are some degenerative changes in the spine. Postsurgical changes present in the anterior abdominal wall. Procedure Note Moncho Archer MD - 04/21/2024 MRI CHOLANGIOPANCREATOGRAPHY (MRCP) WITH AND WITHOUT CONTRAST Referring clinician's provided indication for this examination in Epic:Outside Radiology Order; IPMN TECHNIQUE: Multiplanar MR imaging of the abdomen was performed using T1,T2, fat saturated, and diffusion weighted techniques. 2D and 3D MRCPsequences were performed. Dynamic multiphase imaging was also performedafter administration of an intravenous gadolinium contrast agent. COMPARISON: None FINDINGS: Lower Chest: Normal. No effusions. Liver: Small subcentimeter cysts again noted. No new focal suspicioushepatic lesions identified. Biliary: Status post cholecystectomy. No dilated biliary ducts Spleen: Normal. No splenomegaly or focal lesions. Pancreas: Prior Whipple procedure. There is some mild pancreatic ductirregularity but no significant dilatation in the remnant. Scattered cystsmeasuring up to 6 mm in diameter not significantly changed. No solidmasses or significant solid masslike enhancement identified. Adrenal Glands: Normal. No nodules. Kidneys/Ureters: No hydronephrosis in either kidney. No solid renalmasses. Bilateral renal cysts Bowel: Normal. No dilatation or wall thickening. Peritoneum/Retroperitoneum: Normal. No masses or fluid. Lymph Nodes: Normal. No lymphadenopathy. Vessels: Normal. No abdominal aortic aneurysm. Bones/Soft Tissues: There are some degenerative changes in the spine.Postsurgical changes present in the anterior abdominal wall. IMPRESSION: 1. Unchanged subcentimeter pancreatic side branch IPMNs withoutsuspicious features. Suggest follow-up study in one year time. Mariesinai Liang [place]on [employer] DESIGN[facility] IMG MR ABDOMEN Final Resu lt documented in this encounter Visit Diagnoses Diagnosis IPMN (intraductal papillary mucinous neoplasm)- Primary Neoplasm of unspecified nature of digestive system Bile reflux gastritis Other specified gastritis without mention of hemorrhage IPMN (intraductal papillary mucinous neoplasm) Neoplasm of unspecified nature of digestive system Bile reflux gastritis Other specified gastritis without mention of hemorrhage documented in this encounter Additional Health Concerns Infection Onset Date Last Indicated Resolved Time CoV-Risk 01/17/2024 01/17/2024 01/28/2024 1:22 AM EDT documented as of this encounter Care Teams Supervisor Grove Relationship Specialty Start Date End Date Liu Song MD [address] [place] [address] [email or web address] PCP - General Family Medicine 07/18/18 documented as of this encounter Additional Source Comments The information contained in this document represents components of the legal health record. It is not the complete legal health record.[facility]
--- OUTSIDE RECORDS SUMMARY | 2025-05-21 13:06 | XMS_ITS | Encounter Summary ---
Author Organization [facility] Address [address] [place] [address] [place] [address] Phone Care Team Providers Care Branch Maker Name Role Phone Liu Song MD Primary Care Provider [phone] Encounter Details Date Type Department Care Team (Late Contact Info) Description 08/23/2023 Procedure Pass [facility] Endoscopy Admitting Dept Virtual Department [address] [place] [address] Social History Tobacco Use Types Packs/Day Years [...] Description 11/05/2025 9:00 AM EDT Office Visit [facility] Medicine [address] [place] [address] Sharon Stearns MD 234 [facility], [address] [place] [address] [email or web address] documented as of this encounter Visit Diagnoses Not on filedocumented in this encounter Additional Health Concerns Infection Onset Date Last Indicated Resolved Time CoV-Risk 12/13/2023 12/15/2023 12/26/2023 1:21 AM EDT CoV-Risk 01/17/2024 01/17/2024 01/28/2024 1:22 AM EDT documented as of this encounter Care Teams Branch Maker Relationship Specialty Start Date End Date Liu Song MD [address] [place] [address] [email or web address] PCP - General Family Medicine 07/18/18 documented as of this encounter Additional Source Comments The information contained in this document represents components of the legal health record. It is not the complete legal health record.[facility]
--- OUTSIDE RECORDS SUMMARY | 2025-05-21 13:06 | XMS_ITS | Encounter Summary ---
Author Organization [facility] Address [address] [place] [address] [place] [address] Phone Care Team Providers Care Paint Mixer Hand Name Role Phone David Palacio MD Unavailable [phone] Tony Hauser MD Primary Care Provider [phone] Liu Song MD Primary Care Provider [phone] Encounter Details Date Type Department Care Team (Late st Contact Info) Description 03/09/2018 Transcribe Orders [facility] [address] [place] [address] Liu Song MD [address] [place] [address] [email or web address] Impaired fasting glucose (Primary Dx) Social History Tobacco [...] Description 11/05/2025 9:00 AM EDT Office Visit [facility] [address] [place] [address] Sharon Stearns MD 234 [facility], [address] [place] [address] [email or web address] documented as of this encounter Results * (ABNORMAL) Insulin Level (03/09/2018 11:40 AM EDT) INSULIN 84.0(H) 2.6 - 24.9 mcIU/mL [facility] Blood 03/09/2018 11:4 0 AM EDT 03/09/2018 11:44 AM EDT us Liu Song MD LAB BLOOD ORDERABLES Final Res ult Performing Organization Address [facility]/ZIP Co de Phone Number [facility] [address] [place] [address] * (ABNORMAL) Glucose (03/09/2018 11:40 AM EDT) GLUCOSE 147(H) 70 - 99 mg/dL [facility] Blood 03/09/2018 11:4 0 AM EDT 03/09/2018 11:44 AM EDT us Liu Song MD LAB BLOOD ORDERABLES Final Res ult Performing Organization Address City/[facility]/ZIP Co de Phone Number [facility] 30 [place] [address] * Insulin Level (03/09/2018 8:41 AM EDT) INSULIN 14.4 2.6 - 24.9 mcIU/mL [facility] Blood 03/09/2018 8:41 AM EDT 03/09/2018 8:44 AM EDT us Liu Song MD LAB BLOOD ORDERABLES Final Res ult [facility]PATH [address] [place] [address] * (ABNORMAL) Glucose, fasting (03/09/2018 8:41 AM EDT) FASTING GLUCOSE 135(H) 70 - 110 mg/dL [facility] Blood 03/09/2018 8:41 AM EDT 03/09/2018 8:45 AM EDT us Liu Song MD LAB BLOOD ORDERABLES Final Res ult [facility] [address] [place] [address] documented in this encounter Visit Diagnoses Diagnosis Impaired fasting glucose- Primary documented in this encounter Additional Health [...] documented as of this encounter Care Teams Paint Mixer Hand Relationship Specialty Start Date End Date Tony Hauser MD [address] [place] [address] [place] [address] PCP - General 08/27/16 07/17/18 Liu Song MD [address] [place] [address] [email or web address] PCP - General Family Medicine 07/18/18 David Palacio MD [address] [place] [address] [place] [address] [email or web address] Historical LMR Provider 12/29/14 08/23/21 documented as of this encounter Additional Source Comments The information contained in this document represents components of the legal health record. It is not the complete legal health record.[facility]
--- OUTSIDE RECORDS SUMMARY | 2025-05-21 13:06 | XMS_ITS | Encounter Summary ---
Author Organization [facility] Address [facility] [employer] [facility] [address] [place] [address] Phone Care Team Providers Care Floor Attendant Name Role Phone David Palacio MD Unavailable [phone] Liu Song MD Primary Care Provider [phone] Encounter Details Date Type Department Care Team (Latest Contact Info) Description 09/06/2020 Transcribe Orders Virtual Department 30 [place] [address] Tony Hauser MD [address] [place] [address] [address] [place] [address] Exposure to SARS-associated coronavirus (Primary Dx) Social History Tobacco Use Types [...] Description 11/05/2025 9:00 AM EDT Office Visit [facility] [address] [place], [place] [phone] Sharon Stearns MD [address] [place] [address], [address] [place] [address] [email or web address] [facility] [email or web address] documented as of this encounter Results * COVID-19 PCR Order (09/06/2020 10:02 AM EST) COVID Testing Status Specimen received in analyzing lab. Results should be available within 24 to 48 hrs. [facility] Symptomatic? NO [facility] 09/06/2020 10:0 2 AM EST 09/06/2020 4:01 PM EST us Tony Hauser MD BODY FLUIDS AND STOOLS OR DERABLES Final Result Performing Organization Address City/State/[facility] Co de Phone Number [facility] 30 [place] [address] [facility] [address] [place] [address] documented in this encounter Visit Diagnoses Diagnosis Exposure to SARS-associated coronavirus- Primary documented in this encounter Additional Health Concerns Infection Onset Date Last Indicated Resolved Time CoV-Exposed Comment:Recent close contact documented in the [...] documented as of this encounter Care Teams Floor Attendant Relationship Specialty Start Date End Date Liu Song MD [address] [place] [address] [email or web address] PCP - General Family Medicine 07/18/18 David Palacio MD [address] [place] [address] [place] [address] [email or web address] Historical LMR Provider 12/29/14 08/23/21 documented as of this encounter Additional Source Comments The information contained in this document represents components of the legal health record. It is not the complete legal health record.[facility]
--- OUTSIDE RECORDS SUMMARY | 2025-05-21 13:06 | XMS_ITS | Encounter Summary ---
Author Organization [facility] Address [facility] [employer] [facility] [address] [place] [address] Phone Care Team Providers Care Top Hat Body Maker Name Role Phone Liu Song MD Primary Care Provider [phone] Encounter Details Date Type Department Care Team (Late st Contact Info) Description 12/30/2023 Procedure Pass [facility], [address] [address] Social History Tobacco Use Types Packs/Day Years Used Date Smoking Tobacco: Never Smokeless Tobacco: Never Alcohol Use Standard Drinks/Week Comments Yes 0 (1 standard drink = 0.6 oz pur e alcohol) Occasional wine Education Answer Date Recorded Are you interested in more education? Not on grcaia e 12/10/2022 Are you concerned about learning? [...] Description 11/05/2025 9:00 AM EDT Office Visit [facility] Medicine [address] [place] [address] Sharon Stearns MD 234 [facility], [address] [place] [address] [email or web address] [email or web address] documented as of this encounter Visit Diagnoses Not on filedocumented in this encounter Additional Health Concerns Infection Onset Date Last Indicated Resolved Time CoV-Risk 01/17/2024 01/17/2024 01/28/2024 1:22 AM EDT documented as of this encounter Care Teams Top Hat Body Maker Relationship Specialty Start Date End Date Liu Song MD [address] [place] [email or web address] PCP - General Family Medicine 07/18/18 documented as of this encounter Additional Source Comments The information contained in this document represents components of the legal health record. It is not the complete legal health record.[facility]
--- OUTSIDE RECORDS SUMMARY | 2025-05-21 13:06 | XMS_ITS | Encounter Summary ---
Author Organization [facility] Address [address] [place] [address] [place] [address] Phone Care Team Providers Care Manager Federal Name Role Phone David Palacio MD Unavailable [phone] Liu Song MD Primary Care Provider Encounter Details Date Type Department Care Team (Late st Contact Info) Description 07/25/2020 Transcribe Orders Virtual Department 30 [place] [address] Liu Song MD [address] [place] [address] [email or web address] Fever, unspecified fever cause (Primary Dx); Muscle ache; Stuffy and runny nose Social History Tobacco Use Types Packs/Day Years [...] Description 11/05/2025 9:00 AM EDT Office Visit [facility] [address] [place] [address] Sharon Stearns MD 234 [facility], [address] [place] [address] [email or web address] [email or web address] documented as of this encounter Results * COVID-19 PCR Order (07/25/2020 10:04 AM EST) COVID Testing Status Specimen received in analyzing lab. [facility] Symptomatic? YES [facility] Other 07/25/2020 10:0 4 AM EST 07/25/2020 2:39 PM EST us Liu Song MD BODY FLUIDS AND STOOLS ORDERAB LES Final Result Performing Organization Address City/State/[facility] Co de Phone Number [facility] 30 [place] [address] [facility] [address] [place] [address] documented in this encounter Visit Diagnoses Diagnosis Fever, unspecified fever cause- Primary Muscle ache Unspecified myalgia and myositis Stuffy and runny nose Other diseases of nasal cavity and sinuses documented in this encounter Additional Health Concerns [...] documented as of this encounter Care Teams Manager Federal Relationship Specialty Start Date End Date Liu Song MD [address] [place] [address] [email or web address] PCP - General Family Medicine 07/18/18 David Palacio MD [address] [place] [address] [place] [address] [email or web address] Historical LMR Provider 12/29/14 08/23/21 documented as of this encounter Additional Source Comments The information contained in this document represents components of the legal health record. It is not the complete legal health record.[facility]
--- OUTSIDE RECORDS SUMMARY | 2025-05-21 13:07 | XMS_ITS | Encounter Summary ---
Author Organization [facility] Address [address] [place] [address] [place] [address] Phone Care Team Providers Care Fish And Wildlife Warden Name Role Phone David Palacio MD Unavailable [phone] Liu Song MD Primary Care Provider [phone] Encounter Details Date Type Department Care Team (Latest Contact Info) Description 08/04/2018 Transcribe Orders [facility] Laboratory [address] [address] Tolu Salazar MD [address] [place] [address], [address] [place] [address] [email or web address] Enlarged prostate with urinary obstruction (Primary Dx) Social History Tobacco Use Types [...] Description 11/05/2025 9:00 AM EDT Office Visit [facility] [address] [place], [place] [phone] Sharon Stearns MD [address] [place] [address], [address] [place] [address] [email or web address] documented as of this encounter Results * PSA (screening) (08/04/2018 9:55 AM EST) PSA 0.42 0 - 4.00 ng/mL [facility] Blood 08/04/2018 9:55 AM EST 08/04/2018 9:59 AM EST us Tolu Salazar MD LAB BLOOD ORDERABLES Final Res ult [facility] 30 [place] [address] documented in this encounter Visit Diagnoses Diagnosis Enlarged prostate with urinary obstruction- Primary Hypertrophy of prostate with urinary obstruction and other lower urinary tract symptoms (LUTS) documented in this encounter Additional Health Concerns [...] documented as of this encounter Care Teams Fish And Wildlife Warden Relationship Specialty Start Date End Date Liu Song MD [address] [place] [email or web address] PCP - General Family Medicine 07/18/18 David Palacio MD [address] [place] [address] [place] [address] [email or web address] Historical LMR Provider 12/29/14 08/23/21 documented as of this encounter Additional Source Comments The information contained in this document represents components of the legal health record. It is not the complete legal health record.[facility]
--- OUTSIDE RECORDS SUMMARY | 2025-05-21 13:07 | XMS_ITS | Encounter Summary ---
Author Organization [facility] Address [address] [place] [address] Phone Care Team Providers Care Butadiene Converter Operator Name Role Phone Liu Song MD Primary Care Provider [phone] Encounter Details Date Type Department Care Team (Late st Contact Info) Description 05/14/2025 Procedure Pass [facility], Ct Scan - [facility] [address] [place] [address] Social History Tobacco Use Types Packs/Day Years [...] is your housing situation today? I have patricia sing 05/14/2025 How many times have you [...] AM EST documented as of this encounter Functional Status * Calculated C-SSRS Risk Score (Lifetime/Recent) Answer Date of Assessment Author No Risk Indicated 05/14/2025 2:38 PM EDT Dawna Sneed, RN * [place] Suicide Severity Rating Scale (Screener/Recent Self-Report) Question Answer Date of Assessment Author 1. Wish to be (Past 1 Month) No 025 2:38 PM EDT Dawna Corrales, RN 2. Non-Specific Active Suici chandrika Thoughts (Past 1 Month) No 05/14/2025 2:38 PM EDT Dawna Corrales, RN 6. Suicidal Behavior (Lifetime) No 5 2:38 PM EDT Dawna Corrales, RN documented as of this encounter Plan of Treatment Upcoming Encounters Date Type Department Care Team (Late st Contact Info) Description 11/05/2025 9:00 AM EDT Office Visit [facility] [address] [place] [address] Sharon Stearns MD [address] [facility], [address] [place] [address] [email or web address] documented as of this encounter Visit Diagnoses Not on filedocumented in this encounter Care Teams Butadiene Converter Operator Relationship Specialty Start Date End Date Liu Song MD [address] [place] [address] [email or web address] PCP - General Family Medicine 07/18/18 documented as of this encounter Additional Source Comments The information contained in this document represents components of the legal health record. It is not the complete legal health record.[facility]
--- OUTSIDE RECORDS SUMMARY | 2025-05-21 13:07 | XMS_ITS | Encounter Summary ---
Author Organization [facility] Address [facility] [employer] 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 A separate order for the requested test will be generated by the laboratory. [facility] Blood 03/12/2022 9:47 AM EDT 03/12/2022 9:58 AM EDT us Liu Song MD LAB BLOOD ORDERABLES Final Res ult Performing Organization Address [facility] Co de Phone Number [address] [address] * Miscellaneous lab test (03/12/2022 9:47 AM EDT) TESTS REQUESTED [facility] SPECIMEN/TUBE TYPE SST [facility] REQUEST RECEIVED Request received. A separate order for the requested test will be generated by the laboratory. [facility] Blood 03/12/2022 9:47 AM EDT 03/12/2022 9:58 AM EDT us Liu Song MD LAB BLOOD ORDERABLES Final Res ult Performing Organization Address City/[facility]/ZIP Co de Phone Number [address] [address] * Miscellaneous lab test (03/12/2022 9:47 AM EDT) TESTS REQUESTED [facility] SPECIMEN/TUBE TYPE EDTA [facility] REQUEST RECEIVED Request received. A separate order for the requested test will be generated by the laboratory. [facility] Blood 03/12/2022 9:47 AM EDT 03/12/2022 9:57 AM EDT us Liu Song MD LAB BLOOD ORDERABLES Final Res ult Performing Organization Address [facility] Co de Phone Number [address] [address] * Miscellaneous lab test (03/12/2022 9:47 AM EDT) TESTS REQUESTED [facility]AB[facility] SPECIMEN/TUBE TYPE SST [facility] REQUEST RECEIVED Request received. A separate order for the requested test will be generated by the laboratory. [facility] Blood 03/12/2022 9:47 AM EDT 03/12/2022 9:56 AM EDT us Liu Song MD LAB BLOOD ORDERABLES Final Res ult Performing Organization Address [facility] Co de Phone Number [address] [address] * Lyme Screen with Reflex to Immunoblot, Blood (03/12/2022 9:47 AM EDT) Lyme AB IgG Negative Negative [facility] Lyme AB IgM Negative Negative [facility] Blood 03/12/2022 9:47 AM EDT 03/12/2022 10:56 AM EDT us Liu Song MD LAB BLOOD ORDERABLES Final Res ult Performing Organization Address [facility] Co de Phone Number [address] [address] * Ehrlichia chaffeensis (HME) antibody (03/12/2022 9:47 AM EDT) EHRLICHIA CHAFF (HME) AB, IGG <1:64 <1:64 [facility] MED/PATH SUPERIOR Comment: (NOTE) ADDITIONAL INFORMATION This test was developed using an analyte specific reagent. Its performance characteristics were determined by [facility] in a manner consistent with CLIA requirements. This test has not been cleared or approved by the U.S. Food and Drug Administration. Blood 03/12/2022 9:47 AM EDT 03/12/2022 10:56 AM EDT Liu Song MD LAB BLOOD ORDERABLES Final Res ult Performing Organization Address [facility] de Phone Number [facility] LAB MED/PATH SUPERIOR [address] [place] [address] * Bartonella PCR, blood (03/12/2022 9:47 AM EDT) SPECIMEN SOURCE Blood [facility] DPT OF LAB MED AND PAT+ RESULT Negative Not Applicable [facility] OF LAB MED AND PAT+ Comment: (NOTE) ADDITIONAL INFORMATION This test was developed and its performance characteristics determined by [facility] in a manner consistent with CLIA requirements. This test has not been cleared or approved by the U.S. Food and Drug Administration. Blood 03/12/2022 9:47 AM EDT 03/12/2022 10:56 AM EDT Liu Song MD LAB BLOOD ORDERABLES Final Res ult Performing Organization Address [facility] de Phone Number [facility] DPT OF LAB MED AND PAT+ [address] [place] [address] * Ehrlichia/anaplasma PCR (03/12/2022 9:47 AM EDT) ANAPLASMA PHAGOCYTO Negative Negative [facility] DPT OF LAB MED AND PAT+ EHRLICHIA CHAFFEENS Negative Negative [facility] D[facility] OF LAB MED AND PAT+ EHRL EWINGII/CANIS Negative Negative [facility] DPT OF LAB MED AND PAT+ EHRL MURIS-LIKE Negative Negative [facility] DPT OF LAB MED AND PAT+ Comment: (NOTE) ADDITIONAL INFORMATION This test was developed and its performance characteristics determined by [facility] in a manner consistent with CLIA requirements. This test has not been cleared or approved by the U.S. Food and Drug Administration. Blood 03/12/2022 9:47 AM EDT 03/12/2022 10:56 AM EDT us Liu Song MD LAB BLOOD ORDERABLES Final Res ult [facility] DPT OF LAB MED AND PAT+ [address] [place] [address] documented in this encounter Visit Diagnoses Diagnosis Chronic adhesive pericarditis associated with Lyme disease- Primary documented in this encounter Additional Health Concerns Infection Onset Date Last Indicated Resolved Time CoV-Risk Comment:Per Ambulatory Triage Form 03/05/2022 03/10/202203/21 [...] documented as of this encounter Care Teams Director Plans Relationship Specialty Start Date End Date Liu Song MD [address] [place] [address] [email or web address] PCP - General Family Medicine 07/18/18 documented as of this encounter Additional Source Comments The information contained in this document represents components of the legal health record. It is not the complete legal health record.[facility]
--- OUTSIDE RECORDS SUMMARY | 2025-05-21 13:07 | XMS_ITS | Encounter Summary ---
Author Organization [facility] Address [facility] [facility] [address] [place] [address] Phone Care Team Providers Care Signs And Displays Sales Representative Name Role Phone Liu Song MD Primary Care Provider [phone] Encounter Details Date Type Department Care Team (Late st Contact Info) Description 04/12/2025 Procedure Pass [facility], [address] [address] Social History Tobacco Use Types Packs/Day Years [...] 11/05/2025 9:00 AM EDT Office Visit [facility] Family Medicine [address] [place] [address] Sharon Stearns MD [address] [facility], [address] [place] [address] [email or web address] documented as of this encounter Visit Diagnoses Not on filedocumented in this encounter Care Teams Signs And Displays Sales Representative Relationship Specialty Start Date End Date Liu Song MD [address] [place] [address] [email or web address] PCP - General Family Medicine 07/18/18 documented as of this encounter Additional Source Comments The information contained in this document represents components of the legal health record. It is not the complete legal health record.[facility]
--- OUTSIDE RECORDS SUMMARY | 2025-05-21 13:07 | XMS_ITS | Encounter Summary ---
Author Organization [facility] Address [facility] [employer] [facility] [address] [place] [address] Phone Care Team Providers Care Wildlife Conservation Professor Name Role Phone David Palacio MD Unavailable [phone] Tony Hauser MD Primary Care Provider [phone] Liu Song MD Primary Care Provider [phone] Encounter Details Date Type Department Care Team (Late st Contact Info) Description 06/30/2018 Procedure Pass [facility] Endoscopy Admitting Dept Virtual Department [address] [place] [address] Social History Tobacco Use Types Packs/Day Years [...] Description 11/05/2025 9:00 AM EDT Office Visit [facility] [address] [place] [address] Sharon Stearns MD 234 [facility], [address] [place], [place] [address] [email or web address] documented as of this encounter Visit Diagnoses [...] documented as of this encounter Care Teams Wildlife Conservation Professor Relationship Specialty Start Date End Date Tony Hauser MD [address] [place] [address] [place] [address] PCP - General 08/27/16 07/17/18 Liu Song MD [address] [place] [address] [email or web address] PCP - General Family Medicine 07/18/18 Davdi Palacio MD [address] [place] [address] [place] [address] [email or web address] Historical LMR Provider 12/29/14 08/23/21 documented as of this encounter Additional Source Comments The information contained in this document represents components of the legal health record. It is not the complete legal health record.[facility]
--- OUTSIDE RECORDS SUMMARY | 2025-05-21 13:07 | XMS_ITS | Encounter Summary ---
Author Organization [facility] Address [address] [place] [address] Phone Care Team Providers Care Rubber Process Hand Name Role Phone Liu Song MD Primary Care Provider [phone] Encounter Details Date Type Department Care Team (Late st Contact Info) Description 05/14/2025 Procedure Pass [facility], Ct Scan - [facility] [address] [place] [address] Social History Tobacco Use Types Packs/Day Years [...] 2:38 PM EDT Dawna Sneed, RN * [place] Suicide Severity Rating Scale (Screener/Recent Self-Report) Question [...] Description 11/05/2025 9:00 AM EDT Office Visit [facility] [address] [place] [address] Sharon Stearns MD 234 [facility], [address] [place] [address] [email or web address] documented as of this encounter Visit Diagnoses Not on filedocumented in this encounter Care Teams Rubber Process Hand Relationship Specialty Start Date End Date Liu Song MD [address] [place] [address] [email or web address] PCP - General Family Medicine 07/18/18 documented as of this encounter Additional Source Comments The information contained in this document represents components of the legal health record. It is not the complete legal health record.[facility]
--- OUTSIDE RECORDS SUMMARY | 2025-05-21 13:07 | XMS_ITS | Encounter Summary ---
Author Organization [facility] Address [address] [place] [address] Phone Care Team Providers Care Habitat Biologist Name Role Phone Liu Song MD Primary Care Provider Encounter Details Date Type Department Care Team (Late st Contact Info) Description 05/14/2025 Procedure Pass [facility], Ct Scan - [facility] [address] [place] [address] Social History Tobacco Use Types Packs/Day Years [...] 2:38 PM EDT Dawna Sneed, RN * [place] Suicide Severity Rating Scale (Screener/Recent Self-Report) Question [...] Description 11/05/2025 9:00 AM EDT Office Visit [facility] [address] [place] [address] Sharon Stearns MD [address] [facility], [address] [place] [address] [email or web address] documented as of this encounter Visit Diagnoses Not on filedocumented in this encounter Care Teams Habitat Biologist Relationship Specialty Start Date End Date Liu Song MD [address] [place] [place] [address] [email or web address] PCP - General Family Medicine 07/18/18 documented as of this encounter Additional Source Comments The information contained in this document represents components of the legal health record. It is not the complete legal health record.[facility]
--- OUTSIDE RECORDS SUMMARY | 2025-05-21 13:07 | XMS_ITS | Encounter Summary ---
Author Organization [facility] Address [address] [place] [address] [place] [address] Phone Care Team Providers Care Artificial Limb Fitter Name Role Phone David Palacio MD Unavailable [phone] Liu Song MD Primary Care Provider [phone] Reason for Referral * MRI/CAT Scan - Closed Specialty Diagnoses / Procedures Referred By Contbiju t Referred To Contact Radiology Diagnoses Melena Procedures MRI Abdomen Markus Combs MD Phone: tel: fax: [email or web address] Referral ID Status Reason Start Date Expiration Date Visits Re quested Visits Authorized [id number] Closed 10/04/2018 10/04/2019 1 1 Encounter Details Date Type Department Care Team (Late st Contact Info) Description 10/04/2018 Ancillary Orders Virtual Department [address] [place] [address] Markus Combs MD [address] [place] [address] [email or web address] Social History Tobacco Use Types Packs/Day Years [...] Description 11/05/2025 9:00 AM EDT Office Visit [facility] [address] [place] [address] Sharon Stearns MD 234 [facility], [address] [place] [address] [email or web address] documented as of this encounter Results * MRI ABDOMEN (PANCREAS) WITH AND WITHOUT CONTRAST (10/08/2018 9:33 AM EST) Anatomical Region Laterality Modality Abdomen Magnetic Resonan ce 10/08/2018 10:5 7 AM EST Impressions 10/08/2018 11:29 AM EST 1. 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 2. Unchanged overall appearance of mild atrophy of the residual pancreas. 3. Hepatic and renal cysts. POS [id number] Narrative 10/08/2018 11:29 AM EST EXAM: MRI ABDOMEN (PANCREAS) WITHOUT AND WITH INTRAVENOUS CONTRAST COMPARISON: Abdominal/pelvis CT on October 14, 2013. Abdomen MRI on October 26, 2012. Report and images from previous MR from August 27, 2016 obtained at outside facility is available for review in the Epic. TECHNIQUE: Exam performed on a 1.5 Abby high-field MRI scanner. The following sequences were obtained after the oral administration of 40 mL water: 1mL Dotarem (brand of gadoterate meglumine) in solution: Axial T1 in and out of phase, T1 with fat suppression and T2 with fat suppression, coronal T1 in and out of phase and T1 with fat suppression, followed by post-gadolinium multi-phase T1 series with fat suppression and coronal T1 with fat suppression. Radial thick slab MRCP, coronal oblique thin section MRCP sequences were obtained. Reformatted axial and cholangiographic MIP images are available for review. 3-D rendering of the bile ducts is obtained with image post processing under concurrent supervision not on an independent workstation. FINDINGS: Motion artifact degrades some of the images. LOWER THORAX: Clear. LIVER: Multiple tiny nonenhancing T2 hyperintense lesions scattered throughout the liver parenchyma represent cysts. The visualized liver demonstrates normal signal. BILIARY: Status post cholecystectomy. No intrahepatic or extrahepatic biliary dilatation. PANCREAS: Status post prior resection of the pancreatic head with pancreaticoduodenostomy. The pancreatic duct of the remaining body and tail are normal in caliber. There are several cystic structures seen adjacent to the main pancreatic duct, measuring up to 3 mm and better appreciated on the MRCP reconstructions, that represent mildly dilated branching ducts. The remaining pancreatic duct is mildly atrophic, but without masses. SPLEEN: No splenomegaly. ADRENALS: No nodules. KIDNEYS: Kidneys enhance symmetrically. Tiny nonenhancing T2 hyperintense renal lesions represent cysts. No hydronephrosis. VESSELS: Unremarkable. BONES AND SOFT TISSUES: Postsurgical changes in the anterior abdominal wall. Bone marrow pattern appears unremarkable. Procedure Note Shanti Snowden MD - 10/08/2018 EXAM: MRI ABDOMEN (PANCREAS) WITHOUT AND WITH INTRAVENOUS CONTRAST COMPARISON: Abdominal/pelvis CT on October 14, 2013. Abdomen MRI on October. [facility] is available for review in the Epic. TECHNIQUE: Exam performed on a 1.5 Abby high-field MRI scanner. Thefollowing sequences were obtained after the oral administration of 40 mLwater: 1mL Dotarem (brand of gadoterate meglumine) in solution: Axial T1in and out of phase, T1 with fat suppression and T2 with fat suppression,coronal T1 in and out of phase and T1 with fat suppression, followed bypost-gadolinium multi-phase T1 series with fat suppression and coronal T1with fat suppression. Radial thick slab MRCP, coronal oblique thinsection MRCP sequences were obtained. Reformatted axial andcholangiographic MIP images are available for review. 3-D rendering of thebile ducts is obtained with image post processing under concurrentsupervision not on an independent workstation. FINDINGS: Motion artifact degrades some of the images. LOWER THORAX: Clear. LIVER: Multiple tiny nonenhancing T2 hyperintense lesions scatteredthroughout the liver parenchyma represent cysts. The visualized liverdemonstrates normal signal. BILIARY: Status post cholecystectomy. No intrahepatic or extrahepaticbiliary dilatation. PANCREAS: Status post prior resection of the pancreatic head withpancreaticoduodenostomy. The pancreatic duct of the remaining body andtail are normal in caliber. There are several cystic structures seenadjacent to the main pancreatic duct, measuring up to 3 mm and betterappreciated on the MRCP reconstructions, that represent mildly dilatedbranching ducts. The remaining pancreatic duct is mildly atrophic, butwithout masses. SPLEEN: No splenomegaly. ADRENALS: No nodules. KIDNEYS: Kidneys enhance symmetrically. Tiny nonenhancing T2 hyperintenserenal lesions represent cysts. No hydronephrosis. VESSELS: Unremarkable. BONES AND SOFT TISSUES: Postsurgical changes in the anterior abdominalwall. Bone marrow pattern appears unremarkable. IMPRESSION: 1. Known branch ductal intraductal papillary mucinous neoplasm of theresidual body/tail of the pancreas is essentially unchanged or minimallyless prominent than comparison study from 2017. 2. Unchanged overall appearance of mild atrophy of the residualpancreas. 3. Hepatic and renal cysts. POS [id number] Markus Combs MD IMG MR ABDOMEN Final Result documented in this encounter Visit Diagnoses Diagnosis Melena Blood in stool Melena Blood in stool documented in this encounter Additional Health Concerns [...] documented as of this encounter Care Teams Artificial Limb Fitter Relationship Specialty Start Date End Date Liu Song MD [address] [place] [address] [email or web address] PCP - General Family Medicine 07/18/18 David Palacio MD [address] [place] [address] [place] [address] [email or web address] Historical LMR Provider 12/29/14 08/23/21 documented as of this encounter Additional Source Comments The information contained in this document represents components of the legal health record. It is not the complete legal health record.[facility]
--- OUTSIDE RECORDS SUMMARY | 2025-05-21 13:07 | XMS_ITS | Encounter Summary ---
Author Organization [facility] Address [address] [place] [address] Phone Care Team Providers Care Homeopathic Doctor Name Role Phone Liu Song MD Primary Care Provider [phone] Reason for Referral * MRI/CAT Scan - Closed Specialty Diagnoses / Procedures Referred By Efrem ramirez Referred To Contact Radiology Diagnoses Lumbosacral spinal stenosis Procedures MRI Lumbar Spine Portia Mccall FNP [address] [address] Phone: tel: fax: Referral ID Status Reason Start Date Expiration Date Visits Re quested Visits Authorized [id number] Closed 03/08/2025 03/08/2026 1 1 Encounter Details Date Type Department Care Team (Late st Contact Info) Description 03/08/2025 Transcribe Orders Virtual Department [address] [place] [address] Portia Mccall FNP [address] [address] Lumbosacral spinal stenosis (Primary Dx) Social History Tobacco Use Types [...] Description 11/05/2025 9:00 AM EDT Office Visit [address] [address] Sharon Stearns MD [address] [place] [address] 7 [place] [address] [email or web address] documented as of this encounter Results * MRI LUMBAR SPINE (NEURO) WITHOUT CONTRAST [...] COMPARISON: MRI LUMBAR SPINE (NEURO) WITHOUT CONTRAST FINDINGS: LUMBAR SPINE: Alignment and Vertebrae: Normal [...] foraminal stenosis. L4-L5: Mild disc bulge with yrdr-vf-zeoxhbbq facet arthropathy contributing to mild bilateral subarticular and moderate bilateral foraminal stenosis, worse on the LEFT, similar to minimally worsened compared with prior. L5-S1: Mild disc bulge with mild facet arthropathy contributing to rsqf-we-qkmhbcmh bilateral foraminal stenosis. Procedure Note Gilbert Bullock MD, PhD - 04/10/2025 MRI LUMBAR SPINE (NEURO) WITHOUT CONTRAST Referring clinician's provided indication for this examination in Epic:Outside Radiology Order; * Spinal stenosis, lumbosacral; LOW BACK PAIN TECHNIQUE: MRI LUMBAR SPINE (NEURO) WITHOUT CONTRAST Multi-sequence, multi-planar MRI of the lumbar spine was performed withoutintravenous contrast. COMPARISON: MRI LUMBAR SPINE (NEURO) WITHOUT CONTRAST FINDINGS: LUMBAR SPINE: Alignment and Vertebrae: Normal [...] foraminal stenosis. L4-L5: Mild disc bulge with hpxm-om-xbwptvkg facet arthropathycontributing to mild bilateral subarticular and moderate bilateralforaminal stenosis, worse on the LEFT, similar to minimally worsenedcompared with prior. L5-S1: Mild disc bulge with mild facet arthropathy contributing vxhhiz-dt-leezjqqv bilateral foraminal stenosis. IMPRESSION: 1. Multilevel degenerative changes as detailed above, most prominent atL4-L5 with mild bilateral subarticular and moderate bilateral foraminalstenosis, worse on the LEFT, similar to minimally worsened compared withMay 2022. us Portia Mccall CARDIOPULMONARY SUPERVISOR IMG MR XSPECIALTY Final Res ult documented in this encounter Visit Diagnoses Diagnosis Lumbosacral spinal stenosis- Primary Lumbosacral spinal stenosis documented in this encounter Care Teams Homeopathic Doctor Relationship Specialty Start Date End Date Liu Song MD [address] [place] [address] [email or web address] PCP - General Family Medicine 07/18/18 documented as of this encounter Additional Source Comments The information contained in this document represents components of the legal health record. It is not the complete legal health record.[facility]
--- OUTSIDE RECORDS SUMMARY | 2025-05-21 13:07 | XMS_ITS | Encounter Summary ---
Author Organization [facility] Address [facility] [address] [place] [address] Phone Care Team Providers Care Medical Transcription Editor Name Role Phone Liu Song MD Primary Care Provider [phone] Encounter Details Date Type Department Care Team (Late st Contact Info) Description 03/08/2025 Procedure Pass [facility], [address] [address] Social History Tobacco Use Types Packs/Day Years Used Date Smoking Tobacco: Never Smokeless Tobacco: Never Alcohol Use Standard Drinks/Week Comments Yes 0 (1 standard drink = 0.6 oz pur e alcohol) Occasional wine Education Answer Date Recorded Are you interested in more education? Not on gracai e 12/10/2022 Are you concerned about learning? [...] Description 11/05/2025 9:00 AM EDT Office Visit [facility] Medicine [address] [place] [address] Sharon Stearns MD [address] [facility], [address] [place] [address] [email or web address] documented as of this encounter Visit Diagnoses Not on filedocumented in this encounter Care Teams Medical Transcription Editor Relationship Specialty Start Date End Date Liu Song MD [address] [place] [address] [email or web address] PCP - General Family Medicine 07/18/18 documented as of this encounter Additional Source Comments The information contained in this document represents components of the legal health record. It is not the complete legal health record.[facility]
--- OUTSIDE RECORDS SUMMARY | 2025-05-21 13:07 | XMS_ITS | Encounter Summary ---
Author Organization [facility] Address [facility] [address] [place] [address] Phone Care Team Providers Care Convention Services Director Name Role Phone David Palacio MD Unavailable [phone] Liu Song MD Primary Care Provider [phone] Encounter Details Date Type Department Care Team (Late st Contact Info) Description 10/04/2018 Procedure Pass [facility], [address] [address] Social History Tobacco Use Types Packs/Day Years [...] AM EST documented as of this encounter Last Filed Vital Signs Vital Sign Reading Time Taken Comments Blood Pressure - - Pulse - - Temperature - - Respiratory Rate - - Oxygen Saturation - - Inhaled Oxygen Concentration - - Weight 84.8 kg (187 lb) 10/04/2018 4:06 PM EST Height 172.7 cm (5' 8 ) 10/04/2018 4:06 PM EST Body Mass Index 28.43 10/04/2018 4:06 PM EST documented in this encounter Plan of Treatment Upcoming Encounters Date Type Department Care Team (Late st Contact Info) Description 11/05/2025 9:00 AM EDT Office Visit [facility] [address] [place] [address] Sharon Stearns MD [address] [facility], [address] [place] [address] [email or web address] documented as of this encounter Visit Diagnoses [...] documented as of this encounter Care Teams Convention Services Director Relationship Specialty Start Date End Date Liu Song MD [address] [place] [address] [email or web address] PCP - General Family Medicine 07/18/18 David Palacio MD [address] [place] [address] [place] [address] [email or web address] Historical LMR Provider 12/29/14 08/23/21 documented as of this encounter Additional Source Comments The information contained in this document represents components of the legal health record. It is not the complete legal health record.[facility]
--- OUTSIDE RECORDS SUMMARY | 2025-05-21 13:07 | XMS_ITS | Encounter Summary ---
Author Organization [facility] Address [address] [place] [address] Phone Care Team Providers Care Production Checker Name Role Phone Liu Song MD Primary Care Provider [phone] Encounter Details Date Type Department Care Team (Late st Contact Info) Description 05/14/2025 Procedure Pass [facility], Ct Scan - [facility] [address] [place] [address] Social History Tobacco Use Types Packs/Day Years [...] 2:38 PM EDT Dawna Sneed, RN * [place] Suicide Severity Rating Scale (Screener/Recent Self-Report) Question [...] Description 11/05/2025 9:00 AM EDT Office Visit [facility] [address] [place] [address] Sharon Stearns MD 234 [facility], [address] [place] [address] [email or web address] documented as of this encounter Visit Diagnoses Not on filedocumented in this encounter Care Teams Production Checker Relationship Specialty Start Date End Date Liu Song MD [address] [place] [address] [email or web address] PCP - General Family Medicine 07/18/18 documented as of this encounter Additional Source Comments The information contained in this document represents components of the legal health record. It is not the complete legal health record.[facility]
--- OUTSIDE RECORDS SUMMARY | 2025-05-21 13:07 | XMS_ITS | Encounter Summary ---
Author Organization [facility] Address [address] [place] [address] [place] [address] Phone Care Team Providers Care Nephrologist Name Role Phone Liu Song MD Primary Care Provider [phone] Reason for Referral * MRI/CAT Scan - Closed Specialty Diagnoses / Procedures Referred By Efrem t Referred To Contact Radiology Diagnoses IPMN (intraductal papillary mucinous neoplasm) Biliary gastritis Procedures MRI Cholangiopancreatography (MRCP) Marie Yarbrough CNP Phone: tel: fax: [email or web address] Referral ID Status Reason Start Date Expiration Date Visits Re quested Visits Authorized [id number] Closed 04/12/2025 04/12/2026 1 1 Encounter Details Date Type Department Care Team (Latest Contact Info) Description 04/12/2025 Transcribe Orders Virtual Department 30 [place] [address] Marie Yarbrough CNP 10 [place] [address] IPMN (intraductal papillary mucinous neoplasm) (Primary Dx); Biliary gastritis Social History Tobacco Use Types Packs/Day [...] EDT Office Visit [facility] [address] [place] [address] Sharon Stearns MD 234 [facility], [address] [place] [address] [email or web address] [email or web address] documented as of this encounter [...] Continued imaging follow-up in one year isadvised. Marie Yarbrough CNP IMG MR ABDOMEN Final Resu lt documented in this encounter Visit Diagnoses Diagnosis IPMN (intraductal papillary mucinous neoplasm)- Primary Neoplasm of unspecified nature of digestive system Biliary gastritis Other specified gastritis without mention of hemorrhage IPMN (intraductal papillary mucinous neoplasm) Neoplasm of unspecified nature of digestive system Biliary gastritis Other specified gastritis without mention of hemorrhage documented in this encounter Care Teams Nephrologist Relationship Specialty Start Date End Date Liu Song MD [address] [place] [email or web address] PCP - General Family Medicine 07/18/18 documented as of this encounter Additional Source Comments The information contained in this document represents components of the legal health record. It is not the complete legal health record.[facility]
--- OUTSIDE RECORDS SUMMARY | 2025-05-21 13:08 | XMS_ITS | Encounter Summary ---
Author Organization [facility] Address [address] [place] [address] [place] [address] Phone Care Team Providers Care Vehicle Service Agent Name Role Phone David Palacio MD Unavailable Liu Song MD Primary Care Provider [phone] Encounter Details Date Type Department Care Team (Latest Contact Info) Description 11/17/2018 Transcribe Orders Virtual Department 30 [place] [address] Tolu Salazar MD [facility], [address] [place] [address] [email or web address] Abnormal radiologic findings on diagnostic imaging of renal pelvis, ureter, or bladder (Primary Dx); Hyperplasia of prostate with lower urinary tract symptoms (LUTS) Social History Tobacco Use Types Packs/Day Years [...] [facility] [address] [place] [address] Sharon Stearns MD [address] [facility], [address] [place] [address] [email or web address] documented as of this encounter Results * US Bladder (01/19/2019 10:07 AM EDT) Anatomical Region Laterality Modality Abdomen, Kidney Ultrasound 01/19/2019 5:54 PM EDT Impressions 01/19/2019 6:04 PM EDT Bladder features which are seen with chronic bladder obstruction likely secondary to prostatomegaly. Post void residual bladder volume of 29%. POS - [id number] Narrative 01/19/2019 6:04 PM EDT HISTORY: Benign prostatic hypertrophy COMPARISON: None FINDINGS: Prevoid bladder volume measures 99 cc and post void measures 28 cc for 29% post void residual bladder volume. Limited evaluation of the bladder due to significant underdistention. However, within these limitations, the bladder wall is irregularly thickened and trabeculated diffusely with multiple tiny diverticula and a dominant diverticulum measuring 1.2 x 1.1 x 0.9 cm posterolaterally on the right. Both ureteral jets are visualized. No hydronephrosis on limited imaging of the kidneys. Procedure Note Lg Khoury MD - 01/19/2019 HISTORY: Benign prostatic hypertrophy COMPARISON: None FINDINGS: Prevoid bladder volume measures 99 cc and post void measures 28 cc for 29%post void residual bladder volume. Limited evaluation of the bladder dueto significant underdistention. However, within these limitations, thebladder wall is irregularly thickened and trabeculated diffusely withmultiple tiny diverticula and a dominant diverticulum measuring 1.2 x 1.1x 0.9 cm posterolaterally on the right. Both ureteral jets arevisualized. No hydronephrosis on limited imaging of the kidneys. IMPRESSION: Bladder features which are seen with chronic bladder obstruction likelysecondary to prostatomegaly. Post void residual bladder volume of 29%. POS - [id number] Tolu Salazar MD [facility] Final Result documented in this encounter Visit Diagnoses Diagnosis Abnormal radiologic findings on diagnostic imaging of renal pelvis, ureter, or bladder- Primary Hyperplasia of prostate with lower urinary tract symptoms (LUTS) Unspecified hyperplasia of prostate with urinary obstruction and other lower urinary tract symptoms (LUTS) Abnormal radiologic findings on diagnostic imaging of renal pelvis, ureter, or bladder Hyperplasia of prostate with lower urinary tract symptoms (LUTS) Unspecified hyperplasia of prostate with urinary obstruction and other [...] 53 AM EST COVID-19 07/28/2022 07/28/2022 08/18/2022 1:2 2 AM EST CoV-Risk 12/13/2023 12/15/2023 12/26/2023 1:21 AM EDT CoV-Risk 01/17/2024 01/17/2024 01/28/2024 1:22 AM EDT documented as of this encounter Care Teams Vehicle Service Agent Relationship Specialty Start Date End Date Liu Song MD [address] [place] [address] [email or web address] PCP - General Family Medicine 07/18/18 David Palacio MD [address] [place] [address] [place] [address] [email or web address] Historical LMR Provider 12/29/14 08/23/21 documented as of this encounter Additional Source Comments The information contained in this document represents components of the legal health record. It is not the complete legal health record.[facility]
--- OUTSIDE RECORDS SUMMARY | 2025-05-21 13:08 | XMS_ITS | Encounter Summary ---
Author Organization [facility] Address [facility] [employer] [facility] [address] [place] [address] Phone Care Team Providers Care Audiovisual Aids Technician Name Role Phone Liu Song MD Primary Care Provider Encounter Details Date Type Department Care Team (Late st Contact Info) Description 11/23/2022 Procedure Pass [facility], [address] [address] Social History Tobacco Use Types Packs/Day Years [...] Description 11/05/2025 9:00 AM EDT Office Visit [facility] [address] [place] [address] Sharon Stearns MD 234 [facility], [address] [place] [address] [email or web address] documented as of this encounter Visit Diagnoses Not on filedocumented in this encounter Additional Health Concerns Infection Onset Date Last Indicated Resolved Time CoV-Risk 12/13/2023 12/15/2023 12/26/2023 1:21 AM EDT CoV-Risk 01/17/2024 01/17/2024 01/28/2024 1:22 AM EDT documented as of this encounter Care Teams Audiovisual Aids Technician Relationship Specialty Start Date End Date Liu Song MD [address] [place] [address] [email or web address] PCP - General Family Medicine 07/18/18 documented as of this encounter Additional Source Comments The information contained in this document represents components of the legal health record. It is not the complete legal health record.[facility]
--- OUTSIDE RECORDS SUMMARY | 2025-05-21 13:08 | XMS_ITS | Encounter Summary ---
Author Organization [facility] Address [facility] [address] [place] [address] Phone Care Team Providers Care Director Of Outreach Name Role Phone Liu Song MD Primary Care Provider [phone] Encounter Details Date Type Department Care Team (Late st Contact Info) Description 04/21/2022 Procedure Pass [facility], [address] [address] Social History Tobacco Use Types Packs/Day Years [...] Description 11/05/2025 9:00 AM EDT Office Visit [facility] [address] [place] [address] Sharon Stearns MD 234 [facility], [address] [place] [address] [email or web address] documented as of this encounter Visit Diagnoses [...] as of this encounter Care Teams Director Of Outreach Relationship Specialty Start Date End Date Liu Song MD [address] [place] [address] [email or web address] PCP - General Family Medicine 07/18/18 documented as of this encounter Additional Source Comments The information contained in this document represents components of the legal health record. It is not the complete legal health record.[facility]
--- OUTSIDE RECORDS SUMMARY | 2025-05-21 13:08 | XMS_ITS | Encounter Summary ---
Author Organization [facility] Address [facility] [address] [place] [address] Phone Care Team Providers Care Geothermal Hvac Technician Name Role Phone David Palacio MD Unavailable [phone] Liu Song MD Primary Care Provider [phone] Encounter Details Date Type Department Care Team (Late st Contact Info) Description 02/25/2021 Procedure Pass [facility], [address] [address] Social History Tobacco Use Types Packs/Day Years [...] AM EDT Office Visit [facility] Medicine [address] [place] [address] Sharon Stearns MD 234 [facility], [address] [place] [address] [email or web address] documented as of this encounter Visit Diagnoses [...] documented as of this encounter Care Teams Geothermal Hvac Technician Relationship Specialty Start Date End Date Liu Song MD [address] [place] [address] [email or web address] PCP - General Family Medicine 07/18/18 David Palacio MD [address] [place] [address] [place] [address] [email or web address] Historical LMR Provider 12/29/14 08/23/21 documented as of this encounter Additional Source Comments The information contained in this document represents components of the legal health record. It is not the complete legal health record.[facility]
--- OUTSIDE RECORDS SUMMARY | 2025-05-21 13:08 | XMS_ITS | Encounter Summary ---
Author Organization [facility] Address [facility] [address] [place] [address] Phone Care Team Providers Care Ski Patrol Name Role Phone Liu Song MD Primary Care Provider [phone] Encounter Details Date Type Department Care Team (Late st Contact Info) Description 10/22/2021 Procedure Pass [facility], [address] [address] Social History Tobacco Use Types Packs/Day Years [...] Description 11/05/2025 9:00 AM EDT Office Visit [facility] [address] [place] [address] Sharon Stearns MD 234 [facility], [address] [place] [address] [email or web address] documented as of this [...] documented as of this encounter Care Teams Ski Patrol Relationship Specialty Start Date End Date Liu Song MD [address] [place] [address] [email or web address] PCP - General Family Medicine 07/18/18 documented as of this encounter Additional Source Comments The information contained in this document represents components of the legal health record. It is not the complete legal health record.[facility]
== END 2025-05-21 11:18 | disposition home or self-care (01) ==
LOC: HO.PMC 10:50
PROVIDERS: Visit Provider Nurse Practitioner Family
DX: M47.816 Spondylosis without myelopathy or radiculopathy, lumbar region (principal); M54.50 Low back pain, unspecified; G89.29 Other chronic pain; M53.3 Sacrococcygeal disorders, not elsewhere classified; M51.369 Other intervertebral disc degeneration, lumbar region without mention of lumbar back pain or lower extremity pain; M54.17 Radiculopathy, lumbosacral region; M79.7 Fibromyalgia
CPT/HCPCS: 99214; G2211

== ENCOUNTER → 2025-05-21 10:50 | Outpatient (BNVA) | payer MEDICARE, BC, SELFPAY | PROVIDERS: Visit Provider Nurse Practitioner Family | DX: M47.816 Spondylosis without myelopathy or radiculopathy, lumbar region (principal); M54.50 Low back pain, unspecified; G89.29 Other chronic pain; M53.3 Sacrococcygeal disorders, not elsewhere classified; M51.369 Other intervertebral disc degeneration, lumbar region without mention of lumbar back pain or lower extremity pain; M54.17 Radiculopathy, lumbosacral region; M79.7 Fibromyalgia | CPT/HCPCS: 99212 ==

== ENCOUNTER 2025-07-17 11:57 | Outpatient (AMB) | payer MEDICARE, BC, SELFPAY ==
--- NOTE | 2025-07-17 11:58 | A.OFFVIS_ITS ---
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 The patient has a history of severe multi-level lumbar arthritis. The patient underwent a set of medial branch block injections in February and reported 75% pain relief, which is less than the 80% relief required by insurance for approval of a second set and subsequent radiofrequency ablation. As a result, the second set of injections was denied. The patient has experienced a couple of instances of pain radiating down the left leg to the knee, lasting about 10 minutes each, but this does not occur all the time. The patient has been attending physical therapy, which helps in a very minor way. A Neurosurgery consultation two or three years ago did not lead to a surgical recommendation because the pain did not consistently radiate down the leg. An MRI was completed in March and results are noted below. Neuromodulation with peripheral nerve or spinal cord stimulation is not an option as the patient's is sensitive to electromagnetic forces. PRIOR: The patient is a 75-year-old male presenting with chronic back pain and discuss recent lumbar spine MRI results. The back pain has been persistent and worsened following a fall down the stairs last week, which occurred during the night while returning from the bathroom. The pain is localized to the back and buttocks and does not radiate to the legs, although there is occasional tingling on the side of the leg. Bending down exacerbates the pain, and there is no associated numbness or weakness in the legs. The patient also reports neck pain and abrasions on the scalp, knee, and arm resulting from the fall. A CT scan at the emergency room showed no significant brain injury, although there was some swelling at the site of impact on the scalp. The patient reports he did not require stitches or glue for the abrasions. The MRI findings indicate arthritis at L4-L5 and L5-S1 with mild to moderate narrowing of the spinal canal, particularly affecting the left side. The patient has a history of multiple injections, including PRP, and therapeutic and diagnostic injections provided temporary relief through another pain clinic. More recently, patient underwent diagnostic lumbar medial branch blocks that provided him 75% pain relief for about 6 hours with improved functioning, mobility and sleep. He is interested to proceed with lumbar RFA as next steps. Additionally, a 1.6 cm mass was noted in the left abdomen, which may correlate with previous findings of pelvic calcifications and kidney cysts. The patient has a history of pancreatic surgery due to an IPMN, and previous imaging showed bilateral pelvic calcifications. Past Procedures: 02/20/25: Bilateral Diagnostic L3-L4 DR L5 MBB-75% pain relief for 6 hours PRIOR 12/25/24: The patient is a 74-year-old male with history of arthritis, chronic fatigue, glaucoma, diabetes, borderline anemia, anxiety and depression, presenting with chronic low back and buttocks pain. His pain has been ongoing since 2012, attributable to lumbar facet arthritis and fibromyalgia. He underwent bilateral facet joint injections at L4-L5 and L5-S1 last year by Dr. Mcpherson, with only temporary alleviation of symptoms. Severe arthritis at these lumbar levels was confirmed by an MRI performed last year. His pain scale ranges between 4-8/10, exacerbated in the morning, and impacting daily function. Although he engaged in physical therapy and sought alternative therapies such as PRP injections at [facility], these have not significantly alleviated his discomfort. He expresses hesitancy towards RFA due to concerns with potential discomfort with nerve blocks and ablation procedure under local anesthesia. Patient reports his back pain symptoms have been worsening and he experiences significant difficulty with walking and fibromyalgia flare ups. He has completed physical therapy in the past with mild improvement and has also tried intermittently multiple sessions of chiropractic manipulation, massage therapy and acupuncture for the past 13 years with mixed results. Patient also undergone psychological counseling for chronic pain and depression until [address] Mcpherson since 2023 for back injections. He also has been taking Tylenol #3 as needed with minimal relief and uses marijuana on occasional basis for pain and sleep. 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 Patient avoids NSAIDs due to unknown allergy. - Onset: Pain began in 2012 - Quality/Character: Chronic, persists between 4-8/10 on pain scale; stabbing, sharp, pinching, burning, stinging, sore, hurting, aching, tiring, fearful, tight, squeezing - Location: Low back and buttocks - Radiation: Occasionally to left leg - Exacerbating factors: Arising in the morning, prolonged standing - Relieving factors: Better early evening, limited response to prior injections - Functional impact: Affects daily activities, impedes standing for prolonged periods - Affect: Pain impacting patient's daily functioning and potentially mood - Analgesia: Temporary relief previously from facet injections, current pain scale 8/10 - Adverse Effects: No side effects reported from previous treatments - Activities of Daily Living: Pain interferes with daily activities; goal to increase function and possibly engage in hiking - Aberrant Drug Related Behaviors: Reports history of remote addiction to Ativan and Klonopin [facility] Medical History Diabetes Borderline anemia Glaucoma Arthritis Fibromyalgia Chronic low back pain Neuroforaminal stenosis of lumbosacral spine Lumbar degenerative disc disease Chronic fatigue Anxiety and depression Social History Alcohol intake: current Alcohol intake frequency: holidays/special occasions only Substance Use Type: Marijuana Review of Systems Const All systems reviewed & are unremarkable except as noted in HPI and below Physical Exam Vital Signs: Last Vital Signs Pulse 74 07/17/25 12:01 BP 130/64 07/17/25 12:01 Pulse Ox 97 07/17/25 12:01 Oxygen Delivery Method Room Air 07/17/25 12:01 BMI result Body Mass Index 25.2 General: Appears afebrile. Alert and oriented. Mood and affect appropriate. Follows and participates in conversation appropriately. Respiratory effort is unlabored. No cough. Able to transition from sit to stand unassisted. Ambulates with antalgic gait, with mild limping. General: Yes no CVA tenderness Back/Spine/Pelvis Other: Limited lumbar ROM due to pain. Lumbar extension and axial rotations reproduces moderate to severe pain, lumbar flexion reproduces mild to moderate pain. Mildly antalgic gait with mild limping. Demonstrates 5/5 strength of quadriceps bilaterally as well as flexion/dorsiflexion of bilateral feet against resistance. 2+ pedal pulses bilaterally. Straight leg rise with dorsiflexion negative bilaterally. +1 patellar and achilles reflexes bilaterally. Facet loading test positive bilaterally. Fili?s, Pelvic compression and Stinchfield tests are positive bilaterally. No groin pain with I/E hip rotations. Valsalva maneuver is negative. Back: no CVA tenderness Cervical Spine: cervical ROM normal and No Cervical spine tenderness Thoracic/Lumbar Spine: thoracic and lumbar spine normal to inspection, No Thoracic/lumbar spine scar(s), Lasegue's sign negative, straight leg raise negative bilaterally, pain with thoraco-lumbar ROM, paraspinal muscle tenderness, thoraco-lumbar ROM limited, No thoracic spinal tenderness and lumbar spinal tenderness at L4 and at L5 Sacroiliac joints: bilaterally tender to palpation Extrem General: Yes capillary refill normal, Yes no clubbing, cyanosis or edema and Yes no calf tenderness Results Reviewed Results Reviewed: [facility] 12/23/2022 [facility] 10/28/2020 Assessment & Plan Assessment & Plan (1) Lumbar spondylosis: Code(s): M47.816 - Spondylosis without myelopathy or radiculopathy, lumbar region Category: Medical (2) Chronic low back pain: Code(s): M54.50 - Low back pain, unspecified; G89.29 - Other chronic pain Category: Medical (3) Sacroiliac joint pain: Code(s): M53.3 - Sacrococcygeal disorders, not elsewhere classified Category: Medical (4) Lumbar degenerative disc disease: Code(s): M51.369 - Other intervertebral disc degeneration, lumbar region without mention of lumbar back pain or lower extremity pain Category: Medical Plan I will request a [id number] review with the patient's insurance to appeal the denial of a second set of medial branch block injections. The goal is to obtain approval for a repeat bilateral diagnostic L3-L4 DR L5 MBB injections, with the expectation of achieving at least 80% pain relief for a minimum of 6 hours, which would then qualify the patient for radiofrequency ablation. He received significant pain relief at 75% with initial set of injection this summer. Alternative treatments and Neurosurgical evaluation have been considered. Neuromodulation with PNS or SCS trial is not a viable option due to the patient's having a sensitivity to electromagnetic forces. The patient is encouraged to continue with physical therapy, which provides him some relief. All questions and concerns have been answered and patient agreed with the treatment plan. Follow up as needed. Patient was informed and verbally consented to the use of an ambient scribe for clinic note documentation during this visit. Coding Level of Care Code Est Pt Level 3 (09494) Complex visit Add On G2211 Diagnoses Lumbar spondylosis M47.816 Chronic low back pain M54.50; G89.29 Sacroiliac joint pain M53.3 Lumbar degenerative disc disease M51.369
[2025-07-17 12:01] VITALS: BP 130/64; PULSE 74; O2SAT 97; BMI 25.2
== END 2025-07-17 12:11 | disposition home or self-care (01) ==
LOC: HO.PMC 11:57
PROVIDERS: Visit Provider Nurse Practitioner Family
DX: M47.816 Spondylosis without myelopathy or radiculopathy, lumbar region (principal); M54.50 Low back pain, unspecified; G89.29 Other chronic pain; M53.3 Sacrococcygeal disorders, not elsewhere classified; M51.369 Other intervertebral disc degeneration, lumbar region without mention of lumbar back pain or lower extremity pain
CPT/HCPCS: 99213; G2211

== ENCOUNTER → 2025-07-17 11:57 | Outpatient (BNVA) | payer MEDICARE, BC, SELFPAY | PROVIDERS: Visit Provider Nurse Practitioner Family | DX: M47.816 Spondylosis without myelopathy or radiculopathy, lumbar region (principal); M54.50 Low back pain, unspecified; G89.29 Other chronic pain; M53.3 Sacrococcygeal disorders, not elsewhere classified; M51.369 Other intervertebral disc degeneration, lumbar region without mention of lumbar back pain or lower extremity pain | CPT/HCPCS: 99212 ==